=== PATIENT | female | born 1960 | race Caucasian/White ===

== ENCOUNTER 2017-07-24 23:05 | Inpatient (IN) | payer OTHER ==
[~2017-07-24] VITALS: Ht 162.6 cm; Wt 96.6 kg
[2017-07-24 23:06] VITALS: BP 101/63; PULSE 106; RESP 16; TEMP 100.1; O2SAT 96
[2017-07-24] MEDS ORDERED: SODIUM CHLOR 0.9% 1000 ML INJ 1,000 ML IV ONE (23:44)
[2017-07-24] MEDS ORDERED: ONDANSETRON HCL 4 MG/2 ML VIAL IV PUSH ONE (23:45)
--- NOTE | 2017-07-24 23:47 | PD ---
HPI Chief Complaint: Fever Time Seen by Provider: 23:31 Travel History International Travel<30 days: No Contact w/Intl Traveler<30days: No Traveled to known affect area: No History of Present Illness HPI 57-year-old female from [place], here on vacation, status post left ureteral stent removal yesterday in [place], here for evaluation of fever, nausea, vomiting, and left flank discomfort. Patient reports that she had a ureteral stone that was complicated by a perforated left ureter. She had a ureteral stent placed at that time which was around 2 weeks ago, and was removed yesterday in [place]. She has had a fever throughout the day today with nausea and vomiting. Left flank pain is very mild, described as a tearing type pain. She took Tylenol about 2 hours prior to arrival for a temp at home of 102.7F. She denies dysuria, hematuria, or pyuria. [facility] Social History Tobacco Use: No Allergies-Medications (Allergen,Severity, Reaction): Coded Allergies: amoxicillin (Verified Allergy, Severe, Anaphylaxis, 07/24/17) sulfamethoxazole (Verified Allergy, Severe, Hives, 07/24/17) trimethoprim (Verified Allergy, Severe, Hives, 07/24/17) Reported Meds & Prescriptions Reported Meds & Active Scripts Active Reported Zoloft (Sertraline HCl) 50 Mg Tab 50 Mg PO DAILY Diovan (Valsartan) 160 Mg Tab 160 Mg PO BID Metformin (Metformin HCl) 500 Mg Tab 500 Mg PO DAILY With a meal Review of Systems Except as stated in HPI: all other systems reviewed are Neg Physical Exam Narrative GENERAL: Well-developed, well-nourished, comfortable, no apparent distress. SKIN: Focused skin assessment warm/dry. No rash. HEAD: Atraumatic. Normocephalic. EYES: Pupils equal and round. No scleral icterus. No injection or drainage. ENT: Mucous membranes pink and moist. NECK: Trachea midline. No JVD. CARDIOVASCULAR: Tachycardic, rate 105, regular. RESPIRATORY: No accessory muscle use. Clear to auscultation. Breath sounds equal bilaterally. GASTROINTESTINAL: Abdomen soft, non-tender, nondistended. MUSCULOSKELETAL: No obvious deformities. No clubbing. No cyanosis. No edema. Mild left CVA tenderness. No right CVA tenderness. NEUROLOGICAL: Awake and alert. No obvious cranial nerve deficits. Motor grossly within normal limits. Normal speech. PSYCHIATRIC: Appropriate mood and affect; insight and judgment normal. Data Data Last Documented VS Vital Signs Date Time Temp Pulse Resp B/P (MAP) Pulse Ox O2 Delivery O2 Flow Rate FiO2 07/24/17 23:06 100.1 106 16 101/63 (76) 96 Room Air Orders Orders Sepsis Workup Initiated (07/24/17 ) Complete Blood Count With Diff (07/24/17 23:44) Comprehensive Metabolic Panel (07/24/17 23:44) Prothrombin Time / Inr (Pt) (07/24/17 23:44) Act Partial Throm Time (Ptt) (07/24/17 23:44) Lactic Acid Sepsis Protocol (07/24/17 23:44) Urinalysis - C+S If Indicated (07/24/17 23:44) Blood Culture (07/24/17 23:44) Ecg Monitoring (07/24/17 23:44) Iv Access Insert/Monitor (07/24/17 23:44) Oximetry (07/24/17 23:44) Ondansetron Inj (Zofran Inj) (07/24/17 23:45) Sodium Chlor 0.9% 1000 Ml Inj (Ns 1000 M (07/24/17 23:44) Urine Culture (07/24/17 23:55) Ceftriaxone Inj (Rocephin Inj) (07/25/17 00:30) Ibuprofen (Motrin) (07/25/17 00:45) Ct Abd/Pel W Iv Contrast(Rout) (07/25/17 00:46) Iohexol 350 Inj (Omnipaque 350 Inj) (07/25/17 01:20) Sodium Chlor 0.9% 1000 Ml Inj (Ns 1000 M (07/25/17 02:00) Urinary Catheter Insert/Apply (07/25/17 02:08) Phenazopyridine (Pyridium) (07/25/17 02:15) Invasive Rad Dept Consult (07/25/17 ) Admit Order (Ed Use Only) (07/25/17 02:18) Labs Laboratory Tests Test 07/24/17 23:55 White Blood Count 15.2 TH/MM3 Red Blood Count 3.89 MIL/MM3 Hemoglobin 11.4 GM/DL Hematocrit 33.3 % Mean Corpuscular Volume 85.6 FL Mean Corpuscular Hemoglobin 29.3 PG Mean Corpuscular Hemoglobin Concent 34.3 % Red Cell Distribution Width 13.0 % Platelet Count 182 TH/MM3 Mean Platelet Volume 9.2 FL Neutrophils (%) (Auto) 87.3 % Lymphocytes (%) (Auto) 4.6 % Monocytes (%) (Auto) 7.6 % Eosinophils (%) (Auto) 0.1 % Basophils (%) (Auto) 0.4 % Neutrophils # (Auto) 13.3 TH/MM3 Lymphocytes # (Auto) 0.7 TH/MM3 Monocytes # (Auto) 1.2 TH/MM3 Eosinophils # (Auto) 0.0 TH/MM3 Basophils # (Auto) 0.1 TH/MM3 CBC Comment DIFF FINAL Differential Comment Prothrombin Time 11.3 SEC Prothromb Time International Ratio 1.1 RATIO Activated Partial Thromboplast Time 24.9 SEC Urine Color ORANGE Urine Turbidity HAZY Urine pH 6.0 Urine Specific [place] 1.014 Urine Protein TRACE mg/dL Urine Glucose (UA) NEG mg/dL Urine Ketones NEG mg/dL Urine Occult Blood SMALL Urine Nitrite POS Urine Bilirubin NEG Urine Urobilinogen 2.0 MG/DL Urine Leukocyte Esterase LARGE Urine RBC 14 /hpf Urine WBC 124 /hpf Urine Squamous Epithelial Cells 1 /hpf Urine Bacteria OCC /hpf Urine Mucus FEW /lpf Microscopic Urinalysis Comment CATH-CULTURE IND Blood Urea Nitrogen 15 MG/DL Creatinine 1.19 MG/DL Random Glucose 180 MG/DL Total Protein 7.8 GM/DL Albumin 3.6 GM/DL Calcium Level 9.0 MG/DL Alkaline Phosphatase 77 U/L Aspartate Amino Transf (AST/SGOT) 18 U/L Alanine Aminotransferase (ALT/SGPT) 19 U/L Total Bilirubin 0.8 MG/DL Sodium Level 135 MEQ/L Potassium Level 3.3 MEQ/L Chloride Level 100 MEQ/L Carbon Dioxide Level 26.8 MEQ/L Anion Gap 8 MEQ/L Estimat Glomerular Filtration Rate 47 ML/MIN Lactic Acid Level 1.9 mmol/L MDM Medical Decision Making Medical Screen Exam Complete: Yes Emergency Medical Condition: Yes Differential Diagnosis Sepsis, pyelonephritis, perinephric abscess, UTI, colitis, diverticulitis Narrative Course Initial vital signs show heart rate 106, blood pressure 101/63, pulse ox 96% on room air, oral temp of 100.1F. CBC: WBC 15.2, hemoglobin 11.4, hematocrit 33.3, platelets 182, neutrophils 87.3 %. CMP is remarkable for potassium 3.3, creatinine 1.19, GFR 47, random glucose 180 , otherwise essentially unremarkable. Lactic acid is 1.9. UA: Hazy urine, small occult blood, positive nitrites, large leukocyte esterase, 14 RBCs, 124 WBCs, occasional bacteria. The patient was given a dose of IV Rocephin, a liter of normal saline IV, and oral ibuprofen. CT abdomen pelvis: CONCLUSION: 1. Fat-containing ventral hernias. 2. Mild left hydronephrosis and hydroureter with a 3.7 mm calculus in the left proximal ureter. 3. Significant perinephric stranding and periureteral stranding with a 6.1 cm rim-enhancing fluid collection abutting the left psoas muscle. The possibility of a left ureteral injury with organizing fluid collection, possibly abscess versus urinoma collection can have this appearance. The 4. Mild hepatic steatosis. 5. Small hiatal hernia. Case discussed with on-call urologist Dr. Carter who recommends Steel catheter placement and interventional radiology consultation for drainage of this fluid collection. Patient remains tachycardic despite 1 L of normal saline IV. She will be given another liter. Blood pressure at 2:00 AM is 104/62 with a heart rate of 105. Case discussed with communications engineer who will admit the patient to his service. Critical Care Narrative Aggregate critical care time was 35 minutes. Time to perform other separately billable procedures was not included in the critical care time. My time did not include minutes spent treating any other patients simultaneously or on activities that did not directly contribute to the patient's treatment. The services I provided to this patient were to treat and/or prevent clinically significant deterioration that could result in: , permanent disability, worsening clinical condition, septic shock I provided critical care services requiring my management, as noted below: Chart data review, documentation time, medication orders and management, vital sign assessments/reviewing monitor data, ordering and reviewing lab tests, ordering and interpreting/reviewing x-rays and diagnostic studies, care of the patient and discussion of the patient with the admitting physicians. Diagnosis Primary Impression: Sepsis Qualified Codes: A41.9 - Sepsis, unspecified organism Additional Impressions: Pyelonephritis Perinephric fluid collection Ureterolithiasis Hydronephrosis Qualified Codes: N13.30 - Unspecified hydronephrosis Admitting Information Admitting Physician Requests: Admit Marc Segovia MD Jul 24, 2017 23:47
[2017-07-25] VITALS (11 sets, daily range): BP systolic 85–158; BP diastolic 49–82; PULSE 94–122; RESP 15–22; TEMP 98.7–99.4; O2SAT 91–97
[2017-07-25 00:15] LABS: AUTOMATED NEUTROPHIL # 13.3 TH/MM3 (1.8-7.7); BASOPHIL # 0.1 TH/MM3 (0-0.2); BASOPHIL % 0.4 % (0.0-2.0); EOSINOPHIL % 0.1 % (0.0-4.0); HEMATOCRIT 33.3 % (35.0-46.0); HEMO FLAGS DIFF FINAL; LYMPH % 4.6 % (9.0-44.0); LYMPHOCYTE # 0.7 TH/MM3 (1.0-4.8); MEAN CELL VOLUME 85.6 FL (80.0-100.0); MEAN CORPUSCULAR HEMOGLOBIN 29.3 PG (27.0-34.0); MEAN CORPUSCULAR HGB CONC 34.3 % (32.0-36.0); MONO % 7.6 % (0.0-8.0); NEUT % 87.3 % (16.0-70.0); PLATELET COUNT 182 TH/MM3 (150-450); RED BLOOD COUNT 3.89 MIL/MM3 (4.00-5.30); WHITE BLOOD COUNT 15.2 TH/MM3 (4.0-11.0)
[2017-07-25 00:21] LABS: BACTERIA, URINE OCC /hpf; BLOOD, URINE SMALL (NEG); GLUCOSE,URINE NEG (NEG); KETONE, URINE NEG (NEG); MUCUS URINE FEW /lpf (OCC); NITRITE,URINE POS (NEG); SQUAMOUS EPITHELIAL CELL URINE 1 /hpf (0-5)
[2017-07-25 00:22] LABS: COMMENT (UR) CATH-CULTURE IND; CULTURE IF INDICATED CATH CULTURE IND; URINE COLOR ORANGE (YELLW/STRAW)
[2017-07-25] MEDS ORDERED: METF500T PO (00:25)
[2017-07-25] MEDS ORDERED: ZOLO50TA PO (00:25)
[2017-07-25] MEDS ORDERED: DIOV160T6 PO (00:25)
[2017-07-25 00:26] LABS: APTT (PATIENT) 24.9 SEC (24.3-30.1); INTERNATIONAL NORMALIZED RATIO 1.1 RATIO; PROTHROMBIN TIME - PATIENT 11.3 SEC (9.8-11.6)
[2017-07-25] MEDS ORDERED: cefTRIAXone INJ 1,000 MG in SODIUM CHLORIDE 0.9% INJ 100 ML IV ONE (00:30)
[2017-07-25 00:38] LABS: ANION GAP 8 MEQ/L (5-15); AST (GOT) 18 U/L (15-37); BICARBONATE 26.8 MEQ/L (21.0-32.0); BLOOD UREA NITROGEN 15 MG/DL (7-18); CHLORIDE 100 MEQ/L (98-107); GLOMERULAR FILTRATION RATE 47 ML/MIN (>89); POTASSIUM 3.3 MEQ/L (3.5-5.1); SODIUM (NA) 135 MEQ/L (136-145)
[2017-07-25 00:39] LABS: ALT (GPT) 19 U/L (10-53)
[2017-07-25 00:41] LABS: ALKALINE PHOSPHATASE 77 U/L (45-117); TOTAL BILIRUBIN ADULT 0.8 MG/DL (0.2-1.0)
[2017-07-25] MEDS ORDERED: IBUPROFEN 600 MG TAB PO ONE (00:45)
[2017-07-25] MEDS ORDERED: IOHEXOL 350 MG/ML 10 ML VIAL (for RAD DIAG) IVCONTRAST ONE (01:20)
--- NOTE | 2017-07-25 01:38 | RADRPT ---
EXAM DATE/TIME: 07/25/2017 01:15 [place] COMPARISON: No previous studies available for comparison. INDICATIONS : Abdominal pain with fever and vomiting. Patient had renal stent removed yesterday. IV CONTRAST: 96 cc Omnipaque 350 (iohexol) IV ORAL CONTRAST: No oral contrast ingested. RADIATION DOSE: 15.49 CTDIvol (mGy) MEDICAL HISTORY : Renal calculi. SURGICAL HISTORY : Renal stent and removal ENCOUNTER: Initial ACUITY: 1 day PAIN SCALE: 7/10 LOCATION: Left flank TECHNIQUE: Volumetric scanning of the abdomen and pelvis was performed. Using automated exposure control and ad justment of the mA and/or kV according to patient size, radiation dose was kept as low as reasonably achievable to obtain optimal diagnostic quality images. DICOM format image data is available electro nically for review and comparison. FINDINGS: No pleural or pericardial effusions are seen. Small hiatal hernia. Mild hepatic steatosis. Cholecyste ctomy clips are noted. Spleen, pancreas, adrenal glands, right kidney unremarkable. The patient has a history of having a left renal stent removed yesterday. There is moderate left hydronephrosis, a sma ll focus of air in the left upper pole collecting system, perinephric stranding, and hydroureter. The re is periureteral fluid tracking inferiorly. A 3.7 mm calcific density in the left mid ureter is helio ntified. There is a rim-enhancing fluid collection abutting the psoas musculature on the left abuttin g the left ureter. On axial image 42 this measures 6.1 x 3 cm in AP and transverse dimension. There i s an infraumbilical ventral fat-containing hernia, hernia sac measures 7.5 cm in transverse dimension , abdominal wall defect measures 4.9 cm transverse dimension. There is an adjacent hernia sac measuri ng 6.7 cm containing fat. Lung bases are clear. Osseous structures are intact. CONCLUSION: 1. Fat-containing ventral hernias. 2. Mild left hydronephrosis and hydroureter with a 3.7 mm calculus in the left proximal ureter. 3. Significant perinephric stranding and periureteral stranding with a 6.1 cm rim-enhancing fluid col lection abutting the left psoas muscle. The possibility of a left ureteral injury with organizing flu id collection, possibly abscess versus urinoma collection can have this appearance. The 4. Mild hepatic steatosis. 5. Small hiatal hernia. Jakob A. Charles, MD on July 25, 2017 at 1:32 Board Certified Radiologist. This report was verified electronically.
[2017-07-25] MEDS ORDERED: SODIUM CHLOR 0.9% 1000 ML INJ 1,000 ML IV ONE ×6 (02:00→21:45)
[2017-07-25] MEDS ORDERED: PHENAZOPYRIDINE HCL 200 MG TAB PO ONE (02:15)
[2017-07-25] MEDS ORDERED: SODIUM CHLOR 0.9% 1000 ML INJ 100 ML IV ONE (02:28)
[2017-07-25] MEDS ORDERED: RESP: ALBUTEROL 2.5 MG/IPRATROPIUM 0.5 MG NEB (PRN) INH (02:30)
[2017-07-25] MEDS ORDERED: CHLORHEXIDINE GLUCONATE 2 % 1 PACK (2 CLOTHS) TOP PRN (02:30)
[2017-07-25] MEDS ORDERED: GLUCAGON 1 MG/ML VIAL OTHER PRN ×2 (02:30→09:30)
[2017-07-25] MEDS ORDERED: MAGNESIUM HYDROXIDE SUSP 30 ML CUP PO PRN (02:30)
[2017-07-25] MEDS ORDERED: SENNOSIDES 8.6 MG TAB PO PRN (02:30)
[2017-07-25] MEDS ORDERED: BISACODYL 10 MG SUPP RECTAL PRN (02:30)
[2017-07-25] MEDS ORDERED: LACTULOSE SYRUP 20 GM/30 ML CUP PO PRN (02:30)
[2017-07-25] MEDS ORDERED: Vancomycin Consult Pharmacy 1 EA OTHER SCH (02:30)
[2017-07-25] MEDS ORDERED: DEXTROSE 50% IN WATER 50 ML VIAL(D50) IV PUSH PRN ×2 (02:30→09:30)
[2017-07-25] MEDS ORDERED: ONDANSETRON HCL 4 MG/2 ML VIAL IV PUSH PRN (02:30)
[2017-07-25] MEDS ORDERED: ZOLPIDEM TARTRATE 5 MG TAB PO PRN (02:30)
[2017-07-25] MEDS ORDERED: MISCELLANEOUS NURSING INFORMATION XX SCH (02:30)
[2017-07-25] MEDS ORDERED: SODIUM CHLORIDE 0.9% FLUSH 10 ML FLUSH IV FLUSH PRN (02:30)
--- NOTE | 2017-07-25 03:41 | HHI.HP ---
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 Patient reports that she had a ureteral stone that was complicated by a perforated left ureter. She had a ureteral stent placed at that time which was around 2 weeks ago, and was removed yesterday in [place]. She has had a fever throughout the day today with nausea and vomiting. Left flank pain is very mild, described as a tearing type pain. She took Tylenol about 2 hours prior to arrival for a temp at home of 102.7F. She denies dysuria, hematuria, or pyuria. The CAT scan of the abdomen is significant for perinephric stranding and periureteral stranding with a 6.1 cm rim-enhancing fluid highly suspicious of abscess. Review of Systems Constitutional: COMPLAINS OF: Diaphoretic episodes, Fever, Chills, Dizziness, Night Sweats, DENIES: Fatigue, Weight gain, Weight loss, Change in appetite Endocrine: DENIES: Abnorml menstrual pattern, Heat/cold intolerance, Polydipsia , Polyuria, Polyphagia Eyes: DENIES: Blurred vision, Diplopia, Eye inflammation, Eye pain, Vision loss , Photosensitivity, Double Vision Ears, nose, mouth, throat: DENIES: Tinnitus, Hearing loss, Vertigo, Nasal discharge, Oral lesions, Throat pain, Hoarseness, Ear Pain, Running Nose, Epistaxis, Sinus Pain, Toothache, Odynophagia Respiratory: DENIES: Apneas, Cough, Snoring, Wheezing, Hemoptysis, Sputum production, Shortness of breath Cardiovascular: DENIES: Chest pain, Palpitations, Syncope, Dyspnea on Exertion , PND, Lower Extremity Edema, Orthopnea, Claudication Gastrointestinal: COMPLAINS OF: Nausea, DENIES: Abdominal pain, Black stools, Bloody stools, Constipation, Diarrhea, Vomiting, Difficulty Swallowing, Anorexia Genitourinary: COMPLAINS OF: Dysuria, DENIES: Abnormal vaginal bleeding, Dysmenorrhea, Dyspareunia, Sexual dysfunction, Urinary frequency, Urinary incontinence, Urgency, Hematuria, Nocturia, Vaginal discharge Musculoskeletal: COMPLAINS OF: Muscle aches, DENIES: Joint pain, Stiffness, Joint Swelling, Back pain, Neck pain Integumentary: DENIES: Abnormal pigmentation, Pruritus, Rash, Nail changes, Breast masses, Breast skin changes, Nipple discharge Hematologic/lymphatic: DENIES: Bruising, Lymphadenopathy Immunologic/allergic: DENIES: Eczema, Urticaria Neurologic: DENIES: Abnormal gait, Headache, Localized weakness, Paresthesias, Seizures, Speech Problems, Tremor, Poor Balance Psychiatric: DENIES: Anxiety, Confusion, Mood changes, Depression, Hallucinations, Agitation, Suicidal Ideation, Homicidal Ideation, Delusions Past Family Social History Allergies: Coded Allergies: amoxicillin (Verified Allergy, Severe, Anaphylaxis, 07/24/17) sulfamethoxazole (Verified Allergy, Severe, Hives, 07/24/17) trimethoprim (Verified Allergy, Severe, Hives, 07/24/17) Past Medical History Diabetes type 2 Depression Hypertension Chronic back pain Past Surgical History 3 Hysterectomy Appendectomy Right knee meniscus removed Reported Medications Reported Meds & Active Scripts Active Reported Zoloft (Sertraline HCl) 50 Mg Tab 50 Mg PO DAILY Diovan (Valsartan) 160 Mg Tab 160 Mg PO BID Metformin (Metformin HCl) 500 Mg Tab 500 Mg PO DAILY With a meal Active Ordered Medications Current Medications Medications (Trade) Dose Ordered Sig/[place] Route PRN Reason Start Time Stop Time Status Last Admin Dose Admin Sertraline HCl (Zoloft) 50 mg DAILY PO 07/25/17 09:00 Dextrose (D50w (Vial) Inj) 50 ml UNSCH PRN IV PUSH HYPOGLYCEMIA-SEE COMMENTS 07/25/17 02:30 Glucagon (Glucagon Inj) 1 mg UNSCH PRN OTHER HYPOGLYCEMIA-SEE COMMENTS 07/25/17 02:30 Insulin Human Regular (NovoLIN R SUPPLEMENTAL SCALE) 1 ACHS SLIDING SCALE SQ 07/25/17 08:00 Sodium Chloride 1,000 ml @ 124 mls/hr Q8H4M IV 07/25/17 02:28 Sodium Chloride (NS Flush) 2 ml UNSCH PRN IV FLUSH FLUSH AFTER USING IV ACCESS 07/25/17 02:30 Sodium Chloride (NS Flush) 2 ml BID IV FLUSH 07/25/17 09:00 Acetaminophen (Tylenol) 650 mg Q6H PRN PO PAIN 1-10 AND/OR FEVER >101F 07/25/17 02:30 Ondansetron HCl (Zofran Inj) 4 mg Q6H PRN IV PUSH NAUSEA OR VOMITING 07/25/17 02:30 Zolpidem Tartrate (Ambien) 5 mg HS PRN PO INSOMNIA 07/25/17 02:30 Albuterol/ Ipratropium (Duoneb Neb) 1 ampule Q2HR NEB PRN INH WHEEZING 07/25/17 02:30 Miscellaneous Information 1 [id number] XX 07/25/17 02:30 Chlorhexidine Gluconate (Chlorhexidine 2% Cloth) 3 pack Taper DAILY@04 TOP 07/25/17 04:00 07/21/18 03:59 Chlorhexidine Gluconate (Chlorhexidine 2% Cloth) 3 pack UNSCH PRN TOP HYGIENIC CARE 07/25/17 02:30 Senna/Docusate Sodium (Kati-Colace) 1 tab BID PO 07/25/17 09:00 Magnesium Hydroxide (Milk Of Magnesia Liq) 30 ml Q12H PRN PO Mild constipation 07/25/17 02:30 Sennosides (Senokot) 17.2 mg Q12H PRN PO Moderate constipation 07/25/17 02:30 Bisacodyl (Dulcolax Supp) 10 mg DAILY PRN RECTAL SEVERE CONSITIPATION/IF NPO 07/25/17 02:30 Lactulose (Lactulose Liq) 30 ml DAILY PRN PO SEVERE CONSITIPATION/ IF PO 07/25/17 02:30 Cefepime HCl 2000 mg/Sodium Chloride 100 ml @ 100 mls/hr Q12H IV 07/25/17 03:00 Vancomycin HCl 1400 mg/Sodium Chloride 514 ml @ 250 mls/hr DAILY@0400 IV 07/25/17 04:00 07/25/17 07:20 Pharmacy Profile Note 0 ml @ 0 mls/hr UNSCH OTHER 07/25/17 02:30 Family History No family history significant of malignancy Social History Denies alcohol, tobacco, or illicit drug abuse Physical Exam Vital Signs Vital Signs Date Time Temp Pulse Resp B/P (MAP) Pulse Ox O2 Delivery O2 Flow Rate FiO2 07/25/17 03:00 99.2 07/24/17 23:06 100.1 106 16 101/63 (76) 96 Room Air Physical Exam GENERAL: Well-nourished, well-developed patient. SKIN: Warm and dry. HEAD: Normocephalic. EYES: No scleral icterus. No injection or drainage. NECK: Supple, trachea midline. No JVD or lymphadenopathy. CARDIOVASCULAR: Regular rate and rhythm without murmurs, gallops, or rubs. RESPIRATORY: Breath sounds equal bilaterally. No accessory muscle use. GASTROINTESTINAL: Abdomen soft, non-tender, nondistended. MUSCULOSKELETAL: No cyanosis, or edema. BACK: Nontender without obvious deformity. NEURO EXAM: Mental Status: The patient is alert and oriented to person, place, and time with normal speech. Cranial Nerves: Visual acuity intact bilaterally. Visual swartz normal in all quadrants. Pupils are round, reactive to light. Extraocular movements are intact without ptosis. Hearing is normal bilaterally. Voice is normal. Tongue protrudes midline and moves symmetrically. Reflexes: Biceps, patellar, and Achilles are 2/4 bilaterally. No clonus. Laboratory Laboratory Tests Test 07/24/17 23:55 White Blood Count 15.2 Red Blood Count 3.89 Hemoglobin 11.4 Hematocrit 33.3 Mean Corpuscular Volume 85.6 Mean Corpuscular Hemoglobin 29.3 Mean Corpuscular Hemoglobin Concent 34.3 Red Cell Distribution Width 13.0 Platelet Count 182 Mean Platelet Volume 9.2 Neutrophils (%) (Auto) 87.3 Lymphocytes (%) (Auto) 4.6 Monocytes (%) (Auto) 7.6 Eosinophils (%) (Auto) 0.1 Basophils (%) (Auto) 0.4 Neutrophils # (Auto) 13.3 Lymphocytes # (Auto) 0.7 Monocytes # (Auto) 1.2 Eosinophils # (Auto) 0.0 Basophils # (Auto) 0.1 CBC Comment DIFF FINAL Differential Comment Prothrombin Time 11.3 Prothromb Time International Ratio 1.1 Activated Partial Thromboplast Time 24.9 Urine Color ORANGE Urine Turbidity HAZY Urine pH 6.0 Urine Specific [place] 1.014 Urine Protein TRACE Urine Glucose (UA) NEG Urine Ketones NEG Urine Occult Blood SMALL Urine Nitrite POS Urine Bilirubin NEG Urine Urobilinogen 2.0 Urine Leukocyte Esterase LARGE Urine RBC 14 Urine WBC 124 Urine Squamous Epithelial Cells 1 Urine Bacteria OCC Urine Mucus FEW Microscopic Urinalysis Comment CATH-CULTURE IND Blood Urea Nitrogen 15 Creatinine 1.19 Random Glucose 180 Total Protein 7.8 Albumin 3.6 Calcium Level 9.0 Alkaline Phosphatase 77 Aspartate Amino Transf (AST/SGOT) 18 Alanine Aminotransferase (ALT/SGPT) 19 Total Bilirubin 0.8 Sodium Level 135 Potassium Level 3.3 Chloride Level 100 Carbon Dioxide Level 26.8 Anion Gap 8 Estimat Glomerular Filtration Rate 47 Lactic Acid Level 1.9 Date/Time Source Procedure Growth Status 07/24/17 23:50 Blood Peripheral Aerobic Blood Culture Pending Received 07/24/17 23:50 Blood Peripheral Anaerobic Blood Culture Pending Received 07/24/17 23:55 Urine Catheterized Urine Urine Culture Pending Received Result Diagram: 07/24/17 2355 07/24/17 2355 Imaging Last 24 hours Impressions Abdomen/Pelvis CT 07/25/17 0046 Signed Impressions: Service Date/Time: Thursday, July 25, 2017 01:15 - CONCLUSION: 1. Fat-containing ventral hernias. 2. Mild left hydronephrosis and hydroureter with a 3.7 mm calculus in the left proximal ureter. 3. Significant perinephric stranding and periureteral stranding with a 6.1 cm rim-enhancing fluid collection abutting the left psoas muscle. The possibility of a left ureteral injury with organizing fluid collection, possibly abscess versus urinoma collection can have this appearance. The 4. Mild hepatic steatosis. 5. Small hiatal hernia. Jakob Soto MD Septic Shock Reassessment Septic shock perfusion: reassessment completed Caprini VTE Risk Assessment Caprini VTE Risk Assessment: Mod/High Risk (score >= 2) Caprini Risk Assessment Model Point Value = 1 Point Value = 2 Point Value = 3 Point Value = 5 Age 41-60 Minor surgery BMI > 25 kg/m2 Swollen legs Varicose veins or History of unexplained or recurrent spontaneous Oral contraceptives or hormone replacement Sepsis (< 1 month) Serious lung disease, including pneumonia (< 1 month) Abnormal pulmonary function Acute myocardial infarction Congestive heart failure (< 1 month) History of inflammatory bowel disease Medical patient at bed rest Age 61-74 Arthroscopic surgery Major open surgery (> 45 min) Laparoscopic surgery (> 45 min) Malignancy Confined to bed (> 72 hours) Immobilizing plaster cast Central venous access Age >= 75 History of VTE Family history of VTE Factor V Leiden Prothrombin [id number] Lupus anticoagulant Anticardiolipin antibodies Elevated serum homocysteine Heparin-induced thrombocytopenia Other congenital or acquired thrombophilia Stroke (< 1 month) Elective arthroplasty Hip, pelvis, or leg fracture Acute spinal cord injury (< 1 month) Prophylaxis Regimen Total Risk Factor Score Risk Level Prophylaxis Regimen 0-1 Low Early ambulation 2 Moderate Order ONE of the following: *Sequential Compression Device (SCD) *Heparin 5000 units SQ BID 3-4 Higher Order ONE of the following medications: *Heparin 5000 units SQ TID *Enoxaparin/Lovenox 40 mg SQ daily (WT < 150 kg, CrCl > 30 mL/min) *Enoxaparin/Lovenox 30 mg SQ daily (WT < 150 kg, CrCl > 10-29 mL/min) *Enoxaparin/Lovenox 30 mg SQ BID (WT < 150 kg, CrCl > 30 mL/min) AND/OR *Sequential Compression Device (SCD) 5 or more Highest Order ONE of the following medications: *Heparin 5000 units SQ TID (Preferred with Epidurals) *Enoxaparin/Lovenox 40 mg SQ daily (WT < 150 kg, CrCl > 30 mL/min) *Enoxaparin/Lovenox 30 mg SQ daily (WT < 150 kg, CrCl > 10-29 mL/min) *Enoxaparin/Lovenox 30 mg SQ BID (WT < 150 kg, CrCl > 30 mL/min) AND *Sequential Compression Device (SCD) Assessment and Plan Assessment and Plan Perinephritic abscess - Broad-spectrum antibiotic - IR consult for drain - Both cultures and urine cultures - De-escalate antibiotics per results and sensitivity - Aggressive IV fluid hydration - Steel catheter per urology consult Hypertension - Hold home dose of Diovan in the picture of possible early sepsis - Resume when indicated Acute kidney injury - Recent history of obstructive calculus - IV fluid hydration - Strict I's and O's - Electrolytes replacement per ICU protocol Depressions - Continue Zoloft Diabetes mellitus type 2 - Hold metformin while in the ICU - Insulin sliding scale while nothing by mouth DVT GI prophylaxis - Teds SCDs - Hold pharmacological DVT prophylaxis for upcoming possible procedures IR drainage - GI prophylaxis not indicated Critical Care: The total critical care time was 35 minutes. Time to perform other separately billable procedures was not included in the critical care time. Ferny Cote MD Jul 25, 2017 03:41
[2017-07-25] MEDS: CHLORHEXIDINE GLUCONATE 2 % 1 PACK (2 CLOTHS) TOP SCH (04:00)
[2017-07-25] MEDS ORDERED: VANCOMYCIN INJ 1,400 MG in SODIUM CHLORID 0.9% 500 ML INJ 500 ML IV SCH (04:00)
[2017-07-25] MEDS: CEFEPIME INJ 2,000 MG in SODIUM CHLORIDE 0.9% INJ 100 ML IV SCH ×2 (04:14→15:21)
[2017-07-25] MEDS: ACETAMINOPHEN 325 MG TAB PO PRN ×3 (05:41→22:10)
[2017-07-25] MEDS: INSULIN NovoLIN REGULAR SUPPLEMENTAL SCALE SQ SCH ×4 (08:00→21:00)
[2017-07-25] MEDS: SODIUM CHLORIDE 0.9% FLUSH 10 ML FLUSH IV FLUSH SCH ×2 (09:00→21:00)
[2017-07-25] MEDS: DOCUSATE SODIUM 50 MG/SENNA 8.6 MG TAB PO SCH ×2 (09:00→21:00)
[2017-07-25] MEDS ORDERED: MAGNESIUM OXIDE 400 MG TAB PO PRN (09:30)
[2017-07-25] MEDS ORDERED: MAGNESIUM SULFATE INJ 4 GM in SODIUM CHLORIDE 0.9% INJ 92 ML IV PRN (09:30)
[2017-07-25] MEDS ORDERED: POTASSIUM CHLORIDE 25 MEQ EFFERVESCENT TAB PO PRN (09:30)
[2017-07-25] MEDS ORDERED: INSULIN NovoLIN REGULAR SUPPLEMENTAL SCALE SQ SCH (09:30)
[2017-07-25] MEDS ORDERED: SODIUM PHOSPHATE INJ 30 MMOL in SODIUM CHLOR 0.9% 250 ML INJ 240 ML IV PRN (09:30)
[2017-07-25] MEDS ORDERED: POTASSIUM PHOSPHATE MONOBASIC 500 MG TAB PO/TUBE PRN (09:30)
[2017-07-25] MEDS ORDERED: MAGNESIUM SULFATE INJ 2 GM in SODIUM CHLORIDE 0.9% INJ 96 ML IV PRN (09:30)
[2017-07-25] MEDS ORDERED: POTASSIUM CHLOR 40 MEQ PREMIX 100 ML IV PRN ×2 (09:30)
[2017-07-25] MEDS ORDERED: POTASSIUM PHOSPHATE MONOBASIC 500 MG TAB PO PRN (09:30)
[2017-07-25] MEDS ORDERED: POTASSIUM CHLOR 20 MEQ PREMIX 100 ML IV PRN ×2 (09:30)
[2017-07-25] MEDS: SERTRALINE HCL 50 MG TAB PO SCH (10:51)
[2017-07-25] MEDS: SODIUM CHLOR 0.9% 1000 ML INJ 1,000 ML IV SCH (10:53)
[2017-07-25 11:12] LABS: AUTOMATED NEUTROPHIL # 7.9 TH/MM3 (1.8-7.7); BASOPHIL % 0.2 % (0.0-2.0); HEMATOCRIT 29.1 % (35.0-46.0); HEMO FLAGS DIFF FINAL; LYMPH % 4.2 % (9.0-44.0); LYMPHOCYTE # 0.4 TH/MM3 (1.0-4.8); MEAN CORPUSCULAR HEMOGLOBIN 29.4 PG (27.0-34.0); MEAN CORPUSCULAR HGB CONC 33.8 % (32.0-36.0); MONO % 3.2 % (0.0-8.0); NEUT % 92.4 % (16.0-70.0); PLATELET COUNT 127 TH/MM3 (150-450); RED BLOOD COUNT 3.34 MIL/MM3 (4.00-5.30); RED CELL DISTRIBUTION WIDTH 13.2 % (11.6-17.2); WHITE BLOOD COUNT 8.5 TH/MM3 (4.0-11.0)
[2017-07-25 11:35] LABS: BICARBONATE 26.5 MEQ/L (21.0-32.0); MAGNESIUM 0.9 MG/DL (1.5-2.5); POTASSIUM 3.1 MEQ/L (3.5-5.1)
[2017-07-25] MEDS: FAMOTIDINE 20 MG/2 ML VIAL IV PUSH SCH ×2 (12:00→23:21)
[2017-07-25] MEDS ORDERED: MAGNESIUM CITRATE SOLN 300 ML BTL PO ONE ×2 (12:00→18:00)
--- NOTE | 2017-07-25 12:04 | PD.ID.CON ---
History of Present Illness Service ID Consult Requested By Reason for Consult Evaluation and Mment of Severe Sepsis, Pyelonephritis with left side perinephric abscess. Primary Care Physician Unknown Diagnoses: History of Present Illness is a 57 y/o CF with PMHx of recurrent UTI, pyelonephritis, ureteral stones, s.p cystoscopy and ureteral stent placement 3 weeks back in [place]. Patient reports the ureter was perforated and a stent placed. 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 She had her stent removed 5-6 days prior to admission. She reports she went back to work and was dragging herself. She has never had to do this but while walking from her work to her car she had to pause and wait due to weakness. She felt ok so the family decided to come to [place], [place] for a vacation. Enroute on her road trip her she felt chills, nausea and vomiting. Left flank pain radiating to knee area was felt and described as tearing type. She reports a temp of 102 F prior to admission. She denies dysuria, hematuria, or pyuria. The CAT scan of the abdomen is significant for perinephric stranding and periureteral stranding with a 6.1 cm rim-enhancing fluid highly suspicious of abscess. She denies any h/o MDRO, ESBLs. She reports allergy to penicillin with closing of her airway but has tolerated Keflex well. She reports allergy to bactrim. At the time of my evaluation, patient was in [facility]: awake, alert following commands. She had a ponce in place with blood tinged urine. She was not on pressors but her BP was 88/54 (patient is normally hypertensive on meds). Yeny Martinez who will follow the BP and fluid need assessment. No rash, no diarrhea. ID consulted for evaluation and Mment of severe sepsis, Left pyelonephritis and perinephric abscess. IR consulted for CT guided drainage. Review of Systems Constitutional: COMPLAINS OF: Chills, Change in appetite, DENIES: Diaphoretic episodes, Fatigue, Fever, Weight gain, Weight loss, Dizziness, Night Sweats Endocrine: DENIES: Abnorml menstrual pattern, Heat/cold intolerance, Polydipsia , Polyuria, Polyphagia Eyes: DENIES: Blurred vision, Diplopia, Eye inflammation, Eye pain, Vision loss , Photosensitivity, Double Vision Ears, nose, mouth, throat: DENIES: Tinnitus, Hearing loss, Vertigo, Nasal discharge, Oral lesions, Throat pain, Hoarseness, Ear Pain, Running Nose, Epistaxis, Sinus Pain, Toothache, Odynophagia Respiratory: DENIES: Apneas, Cough, Snoring, Wheezing, Hemoptysis, Sputum production, Shortness of breath Cardiovascular: DENIES: Chest pain, Palpitations, Syncope, Dyspnea on Exertion , PND, Lower Extremity Edema, Orthopnea, Claudication Gastrointestinal: DENIES: Abdominal pain, Black stools, Bloody stools, Constipation, Diarrhea, Nausea, Vomiting, Difficulty Swallowing, Anorexia Genitourinary: COMPLAINS OF: Hematuria, DENIES: Abnormal vaginal bleeding, Dysmenorrhea, Dyspareunia, Sexual dysfunction, Urinary frequency, Urinary incontinence, Urgency, Dysuria, Nocturia, Vaginal discharge Musculoskeletal: COMPLAINS OF: Back pain, DENIES: Joint pain, Muscle aches, Stiffness, Joint Swelling, Neck pain Integumentary: DENIES: Abnormal pigmentation, Pruritus, Rash, Nail changes, Breast masses, Breast skin changes, Nipple discharge Hematologic/lymphatic: DENIES: Bruising, Lymphadenopathy Immunologic/allergic: DENIES: Eczema, Urticaria Neurologic: DENIES: Abnormal gait, Headache, Localized weakness, Paresthesias, Seizures, Speech Problems, Tremor, Poor Balance Psychiatric: DENIES: Anxiety, Confusion, Mood changes, Depression, Hallucinations, Agitation, Suicidal Ideation, Homicidal Ideation, Delusions Except as stated in HPI: all other systems reviewed are Neg Past Family Social History Allergies: Coded Allergies: amoxicillin (Verified Allergy, Severe, Anaphylaxis, 07/24/17) sulfamethoxazole (Verified Allergy, Severe, Hives, 07/24/17) trimethoprim (Verified Allergy, Severe, Hives, 07/24/17) Past Medical History recurrent UTIs and pyelonephritis Diabetes type 2 Depression Hypertension Chronic back pain Past Surgical History 3 Hysterectomy Appendectomy Right knee meniscus removed Ureteral stone placement with rupture. s.p cystoscopy and stent placement. Reported Medications Reported Meds & Active Scripts Active Reported Zoloft (Sertraline HCl) 50 Mg Tab 50 Mg PO DAILY Diovan (Valsartan) 160 Mg Tab 160 Mg PO BID Metformin (Metformin HCl) 500 Mg Tab 500 Mg PO DAILY With a meal Active Ordered Medications Current Medications Medications (Trade) Dose Ordered Sig/Wayne Route Start Time Stop Time Status Last Admin (Zoloft) 50 mg DAILY PO 07/25/17 09:00 07/25/17 10:51 (D50w (Vial) Inj) 50 ml UNSCH PRN IV PUSH 07/25/17 02:30 (Glucagon Inj) 1 mg UNSCH PRN OTHER 07/25/17 02:30 (NovoLIN R SUPPLEMENTAL SCALE) 1 ACHS SLIDING SCALE SQ 07/25/17 08:00 Sodium Chloride 1,000 ml @ 75 mls/hr [id number] IV 07/25/17 02:28 07/25/17 10:53 (NS Flush) 2 ml UNSCH PRN IV FLUSH 07/25/17 02:30 (NS Flush) 2 ml BID IV FLUSH 07/25/17 09:00 (Tylenol) 650 mg Q6H PRN PO 07/25/17 02:30 07/25/17 05:41 (Zofran Inj) 4 mg Q6H PRN IV PUSH 07/25/17 02:30 (Ambien) 5 mg HS PRN PO 07/25/17 02:30 (Duoneb Neb) 1 ampule Q2HR NEB PRN INH 07/25/17 02:30 Miscellaneous Information 1 Q361D XX 07/25/17 02:30 (Chlorhexidine 2% Cloth) 3 pack Taper DAILY@04 TOP 07/25/17 04:00 07/21/18 03:59 07/25/17 04:00 (Chlorhexidine 2% Cloth) 3 pack UNSCH PRN TOP 07/25/17 02:30 (Kati-Colace) 1 tab BID PO 07/25/17 09:00 (Milk Of Magnesia Liq) 30 ml Q12H PRN PO 07/25/17 02:30 (Senokot) 17.2 mg Q12H PRN PO 07/25/17 02:30 (Dulcolax Supp) 10 mg DAILY PRN RECTAL 07/25/17 02:30 (Lactulose Liq) 30 ml DAILY PRN PO 07/25/17 02:30 Cefepime HCl 2000 mg/Sodium Chloride 100 ml @ 100 mls/hr Q12H IV 07/25/17 03:00 07/25/17 04:14 Pharmacy Profile Note 0 ml @ 0 mls/hr UNSCH OTHER 07/25/17 02:30 (D50w (Vial) Inj) 50 ml UNSCH PRN IV PUSH 07/25/17 09:30 (Glucagon Inj) 1 mg UNSCH PRN OTHER 07/25/17 09:30 (NovoLIN R SUPPLEMENTAL SCALE) 1 Q6H SQ 07/25/17 09:30 Potassium Chloride 100 ml @ 50 mls/hr Q2H PRN IV 07/25/17 09:30 Potassium Chloride 100 ml @ 50 mls/hr Q2H PRN IV 07/25/17 09:30 (K-Lyte Cl Eff) 50 meq UNSCH PRN PO 07/25/17 09:30 Potassium Chloride 100 ml @ 25 mls/hr UNSCH PRN IV 07/25/17 09:30 Potassium Chloride 100 ml @ 50 mls/hr Q2H PRN IV 07/25/17 09:30 Magnesium Sulfate 4 gm/Sodium Chloride 100 ml @ 50 mls/hr UNSCH PRN IV 07/25/17 09:30 (Mag-Ox) 800 mg UNSCH PRN PO 07/25/17 09:30 Magnesium Sulfate 2 gm/Sodium Chloride 100 ml @ 50 mls/hr UNSCH PRN IV 07/25/17 09:30 (K-Phos) 2,000 mg Q4H PRN PO 07/25/17 09:30 Sodium Phosphate 30 mmol/Sodium Chloride 250 ml @ 42 mls/hr UNSCH PRN IV 07/25/17 09:30 (K-Phos) 2,000 mg UNSCH PRN PO/TUBE 07/25/17 09:30 Potassium Phosphate 30 mmol/ Sodium Chloride 260 ml @ 42 mls/hr UNSCH PRN IV 07/25/17 09:30 Sodium Chloride 1,000 ml @ 999 mls/hr BOLUS ONCE IV 07/25/17 11:15 07/25/17 12:15 (Pepcid Inj) 10 mg Q12H IV PUSH 07/25/17 12:00 Family History reviewed and NC to current ID problems. Social History Lives in [place]. Is an ICU nurse for 34 yrs. No alcohol, no smoking, no illicit drug use. Physical Exam Vital Signs Vital Signs Date Time Temp Pulse Resp B/P (MAP) Pulse Ox O2 Delivery O2 Flow Rate FiO2 07/25/17 07:00 122 19 111/59 (76) 91 07/25/17 06:41 19 07/25/17 06:00 116 07/25/17 04:00 109 07/25/17 03:52 99.4 109 20 158/82 (107) 95 07/25/17 03:00 99.2 07/24/17 23:06 100.1 106 16 101/63 (76) 96 Room Air Physical Exam GENERAL: This is a well-nourished, well-developed patient, in no apparent distress. SKIN: No rashes, ecchymoses or lesions. Cool and dry. HEAD: Atraumatic. Normocephalic. No temporal or scalp tenderness. EYES: Pupils equal round and reactive. Extraocular motions intact. No scleral icterus. No injection or drainage. ENT: Nose without bleeding, purulent drainage or septal hematoma. Throat without erythema, tonsillar hypertrophy or exudate. Uvula midline. Airway patent. NECK: Trachea midline. Supple, nontender, no meningeal signs. CARDIOVASCULAR: Regular rate and rhythm without murmurs, gallops, or rubs. RESPIRATORY: Clear to auscultation. Breath sounds equal bilaterally. No wheezes , rales, or rhonchi. GASTROINTESTINAL: Abdomen soft, non-tender, nondistended. MUSCULOSKELETAL: Extremities without clubbing, cyanosis, or edema. No joint tenderness, effusion, or edema noted. No calf tenderness. Negative Homans sign bilaterally. NEUROLOGICAL: Awake and alert. Cranial nerves II through XII intact. Motor and sensory grossly within normal limits. Five out of 5 muscle strength in all muscle groups. Normal speech. Psych cooperative IV line sites with no e.o infection Ponce with blood tinged urine. Laboratory Laboratory Tests Test 07/24/17 23:55 07/25/17 03:48 07/25/17 07:55 07/25/17 10:39 White Blood Count 15.2 8.5 Red Blood Count 3.89 3.34 Hemoglobin 11.4 9.8 Hematocrit 33.3 29.1 Mean Corpuscular Volume 85.6 87.0 Mean Corpuscular Hemoglobin 29.3 29.4 Mean Corpuscular Hemoglobin Concent 34.3 33.8 Red Cell Distribution Width 13.0 13.2 Platelet Count 182 127 Mean Platelet Volume 9.2 9.1 Neutrophils (%) (Auto) 87.3 92.4 Lymphocytes (%) (Auto) 4.6 4.2 Monocytes (%) (Auto) 7.6 3.2 Eosinophils (%) (Auto) 0.1 0.0 Basophils (%) (Auto) 0.4 0.2 Neutrophils # (Auto) 13.3 7.9 Lymphocytes # (Auto) 0.7 0.4 Monocytes # (Auto) 1.2 0.3 Eosinophils # (Auto) 0.0 0.0 Basophils # (Auto) 0.1 0.0 CBC Comment DIFF FINAL DIFF FINAL Differential Comment Prothrombin Time 11.3 Prothromb Time International Ratio 1.1 Activated Partial Thromboplast Time 24.9 Urine Color ORANGE Urine Turbidity HAZY Urine pH 6.0 Urine Specific [place] 1.014 Urine Protein TRACE Urine Glucose (UA) NEG Urine Ketones NEG Urine Occult Blood SMALL Urine Nitrite POS Urine Bilirubin NEG Urine Urobilinogen 2.0 Urine Leukocyte Esterase LARGE Urine RBC 14 Urine WBC 124 Urine Squamous Epithelial Cells 1 Urine Bacteria OCC Urine Mucus FEW Microscopic Urinalysis Comment CATH-CULTURE IND Blood Urea Nitrogen 15 13 Creatinine 1.19 1.01 Random Glucose 180 148 Total Protein 7.8 Albumin 3.6 Calcium Level 9.0 7.8 Alkaline Phosphatase 77 Aspartate Amino Transf (AST/SGOT) 18 Alanine Aminotransferase (ALT/SGPT) 19 Total Bilirubin 0.8 Sodium Level 135 143 Potassium Level 3.3 3.1 Chloride Level 100 109 Carbon Dioxide Level 26.8 26.5 Anion Gap 8 8 Estimat Glomerular Filtration Rate 47 57 Lactic Acid Level 1.9 1.8 Nasal Screen MRSA (PCR) MRSA NOT DETECTED Phosphorus Level 1.9 Magnesium Level 0.9 Date/Time Source Procedure Growth Status 07/25/17 07:55 Blood Peripheral Aerobic Blood Culture Pending Received 07/25/17 07:55 Blood Peripheral Anaerobic Blood Culture Pending Received 07/24/17 23:55 Urine Catheterized Urine Urine Culture Pending Received Result Diagram: 07/25/17 1039 07/25/17 1039 Imaging Last Impressions Abdomen/Pelvis CT 07/25/17 0046 Signed Impressions: Service Date/Time: Tuesday, July 25, 2017 01:15 - CONCLUSION: 1. Fat-containing ventral hernias. 2. Mild left hydronephrosis and hydroureter with a 3.7 mm calculus in the left proximal ureter. 3. Significant perinephric stranding and periureteral stranding with a 6.1 cm rim-enhancing fluid collection abutting the left psoas muscle. The possibility of a left ureteral injury with organizing fluid collection, possibly abscess versus urinoma collection can have this appearance. The 4. Mild hepatic steatosis. 5. Small hiatal hernia. Jakob Soto MD Assessment and Plan Assessment and Plan Severe Sepsis Hypotension s/p 3 bolus IVF. Lactic acid normalized. Left pyelonephritis with perinephric abscess Possible bacteremia. Possible psoas muscle abscess. h/o ureteral stent placement after a perforation of ureter on left side. 3 wks back at [facility]. acute renal failure: sepsis, prerenal. acute thrombocytopenia: sepsis, meds. Hematuria: likely ureteral perforation related. Recs Continue Cefepime IV (appears to be clinically responding to it) If any change in clinical condition consider escalating to Meropenem as pt is at high risk for ESBLs due to multiple antibiotics in recent past. Follow cultures follow clinically. Plan for IR guided drainage of abscess. briefly d.w . Reviewed imaging with family. d/w hot plate press operator: reassess BP and need for fluids and inform the Wheel Truer. d.w pt and family in room. Dena Loaiza MD Jul 25, 2017 12:04
[2017-07-25] MEDS ORDERED: LIDOCAINE 1%/EPINEPHrine 1:100,000 SOLN 20 ML VIAL ONE (12:42)
--- NOTE | 2017-07-25 13:06 | MB ---
cc: ALFRED SALCIDO DATE OF CONSULTATION: 07/25/2017. HISTORY OF PRESENT ILLNESS: Ms. Palafox is a pleasant 57-year-old female who underwent treatment for a left ureteral stone on 07/02/2017. At the time, she underwent cystoscopy with ureteroscopy and laser lithotripsy for a stone. Apparently, there was some sort of ureteral disruption and a left double-J stent was left in place along with a Steel catheter. The Steel catheter remained in for a week and the indwelling left ureteral stent was there for three weeks. The stent was removed approximately four to five days ago and she decided to travel from [place] to [facility] over the last 24 hours. She started to develop fever with left flank pain and weakness and noted some nausea and vomiting. She presented to the emergency room and a CT scan was performed demonstrating evidence of an infected urinoma along the proximal ureter on the left side. Mild hydronephrosis is noted and there is a 4 cm calcification noted in the proximal ureter. She was currently admitted for sepsis and she was tachycardic and [place] [facility] [place] PAST MEDICAL HISTORY: Her past medical history is notable for: 1. Nephrolithiasis. 2. Urinary tract infections. 3. Pyelonephritis. 4. Diabetes. 5. Depression. 6. Hypertension. 7. Chronic back pain. PAST SURGICAL HISTORY: 1. section. 2. Hysterectomy. 3. Appendectomy. 4. Right knee surgery. 5. Ureteral stent. 6. Cystoscopy. 7. Ureteroscopy. MEDICATIONS: Please refer to the chart. ALLERGIES: AMOXICILLIN. SULFAMETHOXAZOLE. TRIMETHOPRIM. FAMILY HISTORY: Denies any history of renal cancer. 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 REVIEW OF SYSTEMS: She notes flank pain. Denies chest pain. Denies shortness of breath. Notes chills. Decreased appetite. Denies blurry vision. Denies eye pain. Denies tinnitus, hearing loss, vertigo, denies shortness of breath, wheezing. Denies chest pain, palpitations, syncope, denies abdominal pain but notes left-sided flank pain. Some nausea and vomiting is also noted. She denies joint pain or muscle aches. Denies bruising. Denies lymphadenopathy. Denies eczema. Denies abnormal gait. Denies anxiety or confusion. PHYSICAL EXAMINATION: VITAL SIGNS: Presently temperature is 99.4, heart rate 122, respiratory rate 19, blood pressure 111/59. GENERAL: She is a well-developed, well-nourished 57-year-old female in no acute distress. HEAD, EYES, EARS, NOSE, THROAT: Normocephalic and atraumatic. Pupils equal, round and reactive to light and accommodation. Extraocular muscles intact. NECK: The neck is supple. HEART: Regular rate and rhythm LUNGS: Clear. ABDOMEN: Abdomen soft and nontender. There is a little left-sided tenderness noted. There is left costovertebral angle tenderness noted. EXTREMITIES: No cyanosis, clubbing or edema. NEUROLOGICAL EXAMINATION: She is awake and alert. Cranial nerves II through XII are intact. PSYCHIATRIC: Generalized mood. GENITOURINARY: Steel catheter is in place with mildly blood-tinged urine. LABORATORY DATA: White count presently 8.5, hemoglobin 9.8, hematocrit 29.1, platelet count of 127,000. Sodium 143, potassium 3.1, chloride 109, carbon dioxide 26.5, BUN 13, creatinine 1.0, glucose of 148. Urinalysis with large leukocyte esterase, 14 red cells and 124 white cells. Urine culture is currently pending. IMAGING STUDIES: Imaging studies demonstrate a mild left hydronephrosis and hydroureter with a 4 mm calculus left proximal ureter, significant perinephric stranding and periureteral stranding with a 6.1 rim-enhanced collection abutting the left psoas muscle consistent with an infected urinoma. Small hiatal hernia. ASSESSMENT: This is a 57-year-old female with history of a ureteral calculus status post ureteroscopy with recent removal of a left double-J stent now presents with fever, signs of sepsis, and an infected urinoma. RECOMMENDATIONS: 1. Recommend CT-guided drainage of the infected urinoma. 2. Will attempt to place a stent in the operating room in the morning after the IVP is performed today. 3. If the IVP does demonstrate leakage, the patient would benefit from a stent. 4. Continue IV antibiotics. 5. Continue Steel catheter drainage. Thank you for the consult and for allowing me to participate in the care of this patient. Alfred FARRELL/YADIRA /12:32 PM /12:40 PM
[2017-07-25] MEDS ORDERED: MIDAZOLAM HCL 2 MG/2 ML VIAL ONE (13:12)
--- NOTE | 2017-07-25 13:59 | PD.RAD ---
Post CT Procedure Prog Note Pre Procedure Diagnosis: (1) Perinephric fluid collection Post Procedure Diagnosis: (1) Perinephric fluid collection Procedure Date: Jul 25, 2017 Supervising Radiologist: Andres Glover Plan of Activity Patient to Unit: Nursing Unit Patient Condition: Good See PACS Report for procedural detail/treatment Drainage Procedure Procedure 1 Imaging Guidance: CT Side: Left Procedure Type: Abscess Drainage Procedure: Placement Armenian: 8 Drainage: [place] drainage Fluid Description: Cloudy, Yellow Andres Glover MD Jul 25, 2017 13:59
[2017-07-25] MEDS ORDERED: SODIUM CHLORIDE 0.9% 10 ML VIAL IRRIGATION SCH (14:00)
[2017-07-25] MEDS: POTASSIUM PHOSPHATE INJ 30 MMOL in SODIUM CHLOR 0.9% 250 ML INJ 250 ML IV PRN (15:22)
[2017-07-25] MEDS: BISACODYL EC 5 MG TABEC PO SCH ×2 (17:15→21:53)
[2017-07-25] MEDS ORDERED: SODIUM CHLOR 0.9% 1000 ML INJ 1,000 ML IV SCH (19:15)
[2017-07-25] MEDS: MORPHINE SULFATE 2 MG/ML INJ SQ PRN (23:10)
[2017-07-25] MEDS: VANCOMYCIN INJ 1,250 MG in SODIUM CHLOR 0.9% 250 ML INJ 250 ML IV SCH (23:12)
[2017-07-26] VITALS (16 sets, daily range): BP systolic 92–143; BP diastolic 52–79; PULSE 79–99; RESP 13–27; TEMP 98.1–99.9; O2SAT 91–99
[2017-07-26] MEDS: CEFEPIME INJ 2,000 MG in SODIUM CHLORIDE 0.9% INJ 100 ML IV SCH ×2 (02:34→14:14)
[2017-07-26 02:37] LABS: AUTOMATED NEUTROPHIL # 7.2 TH/MM3 (1.8-7.7); BASOPHIL % 0.4 % (0.0-2.0); EOSINOPHIL # 0.1 TH/MM3 (0-0.4); HEMATOCRIT 27.7 % (35.0-46.0); LYMPH % 9.8 % (9.0-44.0); LYMPHOCYTE # 0.9 TH/MM3 (1.0-4.8); MEAN CELL VOLUME 87.5 FL (80.0-100.0); MEAN CORPUSCULAR HEMOGLOBIN 28.9 PG (27.0-34.0); NEUT % 81.8 % (16.0-70.0); PLATELET COUNT 106 TH/MM3 (150-450); RED BLOOD COUNT 3.17 MIL/MM3 (4.00-5.30); RED CELL DISTRIBUTION WIDTH 13.5 % (11.6-17.2); WHITE BLOOD COUNT 8.8 TH/MM3 (4.0-11.0)
[2017-07-26 02:43] LABS: HEMO FLAGS AUTO DIFF
[2017-07-26 03:18] LABS: BICARBONATE 24.7 MEQ/L (21.0-32.0); POTASSIUM 3.3 MEQ/L (3.5-5.1)
[2017-07-26 03:23] LABS: BANDS 28 % (0-6); NEUTROPHIL # MANUAL DIFF 7.4 TH/MM3 (1.8-7.7); PLATELET ESTIMATE SMEAR LOW (NORMAL); PLATELET MORPHOLOGY NORMAL (NORMAL); POLYS (SEG NEUTROPHILS) 56 % (16-70); SCAN/DIFF FINAL DIFF MANUAL; WBC DIFF SAMPLE 100
[2017-07-26 03:24] LABS: DOHLE BODIES PRESENT (NONE SEEN)
[2017-07-26 03:34] LABS: CALCIUM-PROTEIN CORRECTED 7.7 MG/DL (8.5-10.1)
[2017-07-26] MEDS: POTASSIUM PHOSPHATE INJ 30 MMOL in SODIUM CHLOR 0.9% 250 ML INJ 250 ML IV PRN (03:58)
[2017-07-26] MEDS: CHLORHEXIDINE GLUCONATE 2 % 1 PACK (2 CLOTHS) TOP SCH (04:00)
[2017-07-26] MEDS: INSULIN NovoLIN REGULAR SUPPLEMENTAL SCALE SQ SCH ×4 (08:00→21:58)
--- NOTE | 2017-07-26 08:22 | HHI.CCPN ---
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 Patient reports that she had a ureteral stone that was complicated by a perforated left ureter. She had a ureteral stent placed at that time which was around 2 weeks ago, and was removed yesterday in [place]. She has had a fever throughout the day today with nausea and vomiting. Left flank pain is very mild, described as a tearing type pain. She took Tylenol about 2 hours prior to arrival for a temp at home of 102.7F. She denies dysuria, hematuria, or pyuria. The CAT scan of the abdomen is significant for perinephric stranding and periureteral stranding with a 6.1 cm rim-enhancing fluid highly suspicious of abscess. 07/26 s/p drainage of perinephric abscess and precordial drain placement by IR yesterday. For Cystoscopy with left retrograde pyelogram and left stent insertion Patient is awake and alert BP is better. Objective Vital Signs Date Time Temp Pulse Resp B/P (MAP) Pulse Ox O2 Delivery O2 Flow Rate FiO2 07/26/17 06:00 95 07/26/17 04:00 98.8 18 143/79 (100) 93 07/24/17 23:06 Room Air Intake and Output 07/26/17 07/26/17 07/27/17 08:00 16:00 00:00 Intake Total 2020 ml Output Total 2250 ml Balance -230 ml Result Diagram: 07/26/17 0210 07/26/17 0210 Other Results Laboratory Tests Test 07/25/17 10:39 07/26/17 02:10 White Blood Count 8.5 TH/MM3 8.8 TH/MM3 Red Blood Count 3.34 MIL/MM3 3.17 MIL/MM3 Hemoglobin 9.8 GM/DL 9.1 GM/DL Hematocrit 29.1 % 27.7 % Mean Corpuscular Volume 87.0 FL 87.5 FL Mean Corpuscular Hemoglobin 29.4 PG 28.9 PG Mean Corpuscular Hemoglobin Concent 33.8 % 33.0 % Red Cell Distribution Width 13.2 % 13.5 % Platelet Count 127 TH/MM3 106 TH/MM3 Mean Platelet Volume 9.1 FL 9.1 FL Neutrophils (%) (Auto) 92.4 % 81.8 % Lymphocytes (%) (Auto) 4.2 % 9.8 % Monocytes (%) (Auto) 3.2 % 7.0 % Eosinophils (%) (Auto) 0.0 % 1.0 % Basophils (%) (Auto) 0.2 % 0.4 % Neutrophils # (Auto) 7.9 TH/MM3 7.2 TH/MM3 Lymphocytes # (Auto) 0.4 TH/MM3 0.9 TH/MM3 Monocytes # (Auto) 0.3 TH/MM3 0.6 TH/MM3 Eosinophils # (Auto) 0.0 TH/MM3 0.1 TH/MM3 Basophils # (Auto) 0.0 TH/MM3 0.0 TH/MM3 CBC Comment DIFF FINAL AUTO DIFF Differential Comment FINAL DIFF MANUAL Blood Urea Nitrogen 13 MG/DL 10 MG/DL Creatinine 1.01 MG/DL 0.57 MG/DL Random Glucose 148 MG/DL 101 MG/DL Calcium Level 7.8 MG/DL 7.0 MG/DL Phosphorus Level 1.9 MG/DL 2.3 MG/DL Magnesium Level 0.9 MG/DL Sodium Level 143 MEQ/L 146 MEQ/L Potassium Level 3.1 MEQ/L 3.3 MEQ/L Chloride Level 109 MEQ/L 114 MEQ/L Carbon Dioxide Level 26.5 MEQ/L 24.7 MEQ/L Anion Gap 8 MEQ/L 7 MEQ/L Estimat Glomerular Filtration Rate 57 ML/MIN 110 ML/MIN Differential Total Cells Counted 100 Neutrophils % (Manual) 56 % Band Neutrophils % 28 % Lymphocytes % 14 % Monocytes % 2 % Neutrophils # (Manual) 7.4 TH/MM3 Dohle Bodies PRESENT Platelet Estimate LOW Platelet Morphology Comment NORMAL Total Protein 5.8 GM/DL Protein Corrected Calcium 7.7 MG/DL Random Vancomycin Level 23.2 COMMENT Imaging Last Impressions Abdomen/Pelvis CT 07/25/17 0046 Signed Impressions: Service Date/Time: Tuesday, July 25, 2017 01:15 - CONCLUSION: 1. Fat-containing ventral hernias. 2. Mild left hydronephrosis and hydroureter with a 3.7 mm calculus in the left proximal ureter. 3. Significant perinephric stranding and periureteral stranding with a 6.1 cm rim-enhancing fluid collection abutting the left psoas muscle. The possibility of a left ureteral injury with organizing fluid collection, possibly abscess versus urinoma collection can have this appearance. The 4. Mild hepatic steatosis. 5. Small hiatal hernia. Jakob Soto MD Objective Remarks GENERAL: Well-nourished, well-developed patient. SKIN: Warm and dry. HEAD: Normocephalic. EYES: No scleral icterus. No injection or drainage. NECK: Supple, trachea midline. No JVD or lymphadenopathy. CARDIOVASCULAR: Regular rate and rhythm without murmurs, gallops, or rubs. RESPIRATORY: Breath sounds equal bilaterally. No accessory muscle use. GASTROINTESTINAL: Abdomen soft, non-tender, nondistended. MUSCULOSKELETAL: No cyanosis, or edema. BACK: Nontender without obvious deformity. NEURO EXAM: Awake and alert. A/P Assessment and Plan Perinephritic abscess Severe Sepsis Hypotension- responded to fluid resuscitation h/o ureteral stent placement after a perforation of ureter on left side s/p removal UTI KORIN- resolved Anemia, thrombocytopenia Hx Hypertension Depressions Diabetes mellitus type 2 Plan Neuro: Awake and alert Pulm: Continue with oxygen keep sat >92% Bronchodilators PRN CV: Monitor HR and BP keep MAP>65mmHg Decrease NS 75ml/hr, Lactic acid 1.8 Received additional 3L NS boluses yesterday. : Monitor renal function, electrolytes replacement per protocol. Needs K, Phos replacement today s/p CT guided drainage of perinephric abscess and drain placement 07/25- monitor drainage ( drained 1350ml since yesterday) For Cystoscopy with left retrograde pyelogram and left stent insertion- Urology-Dr. Carter GI: NPO, on Pepcid 10mg Q12 ID: Continue with abx (Cefepime, Vanco) ID is following. Monitor for signs of infections ( Fever, WBC) follow up on cultures. Fluid and urine cx: GNR Heme: Monitor CBC Endo: SSI to maintain euglycemia GI prophylaxis - on Pepcid DVT prophylaxis - on SCD Level 3 Ashley Gresham MD Jul 26, 2017 08:22
--- NOTE | 2017-07-26 08:50 | PD.OP ---
Operative Report Date of Surgery: Jul 26, 2017 Preoperative Diagnosis: Urinoma left kidney Postoperative Diagnosis: Same Procedure: Cystoscopy with left retrograde pyelogram and left double-J stent insertion Anesthesia: ANTHONY Surgeon: Arya Carter Jewelry Facer(s): None Resident Surgeon: None Operation and Findings: 57-year-old female with a history of a left ureteral calculus. Patient underwent left ureteroscopy with laser lithotripsy in [place] and was noted to have a left ureteral injury during the time of the procedure. Initially, a Steel catheter was left in place along with the stent and the Steel catheter was then removed. The stent was removed approximately one week ago and then she decided to travel down to the [place]. While here she developed left- sided flank pain with nausea and vomiting and a CT scan in the emergency room demonstrated a urinoma which was infected along the proximal left ureter below the kidney. A drain was placed yesterday by special procedures and today she elected to undergo cystoscopy with reinsertion of a left double-J stent. Risk and benefits were discussed preoperatively including further injury to her ureter as well as the need for a left percutaneous nephrostomy tube. She was weaned to proceed. Patient is brought to the operating room and identified by myself as Zuleyka Palafox. She is placed in the dorsal lithotomy position, prepped and draped in usual sterile fashion, received preprocedure antibiotics and general endotracheal tube anesthesia was induced. 22 Icelandic cystoscope was inserted in the bladder moreno cystoscopy did not reveal any abnormalities. The left ureteral orifice was identified and a 5 Icelandic opening catheter was inserted into the left ureteral orifice and retrograde pyelogram was performed. Extravasation of contrast was identified along the proximal ureter where the pigtail catheter was in place. A 0.35 sensor wire was then passed through the open-ended catheter and left in place with a good curl in the kidney. The open- ended catheter was then removed leaving the wire in place and a 6 Icelandic 22 cm Bard terminal operator stent was in place without difficulty. A 16 Icelandic Steel was then inserted completion of the case. She was awoken and extubated and transferred to recovery room in stable condition. She will follow-up with her urologist in [place]. The Steel will remain in place until that time. Arya Carter DO Jul 26, 2017 08:50
[2017-07-26] MEDS: SODIUM CHLORIDE 0.9% FLUSH 10 ML FLUSH IV FLUSH SCH ×2 (09:00→21:00)
[2017-07-26] MEDS ORDERED: DO NOT ADM ANY ANTICOAGULANT DRUGS PRN (09:00)
[2017-07-26] MEDS: DOCUSATE SODIUM 50 MG/SENNA 8.6 MG TAB PO SCH ×2 (09:00→21:00)
[2017-07-26] MEDS ORDERED: *MEPERIDINE 25 MG INJ VIAL PERIprocedural Use ONLY ONE (09:12)
[2017-07-26] MEDS ORDERED: IOHEXOL 350 MG/ML 50 ML BTL (for RAD DIAG) OTHER ONE (09:18)
[2017-07-26] MEDS: SERTRALINE HCL 50 MG TAB PO SCH (10:04)
[2017-07-26] MEDS ORDERED: PHENAZOPYRIDINE HCL 100 MG TAB PO PRN (10:15)
--- NOTE | 2017-07-26 10:33 | HHI.IDPN ---
Subjective Subjective Remarks is a 57 y/o CF with PMHx of recurrent UTI, pyelonephritis, ureteral stones, s.p cystoscopy and ureteral stent placement 3 weeks back in [place]. Patient reports the ureter was perforated and a stent placed. 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 She had her stent removed 5-6 days prior to admission. She reports she went back to work and was dragging herself. She has never had to do this but while walking from her work to her car she had to pause and wait due to weakness. She felt ok so the family decided to come to [place], [place] for a vacation. Enroute on her road trip her she felt chills, nausea and vomiting. Left flank pain radiating to knee area was felt and described as tearing type. She reports a temp of 102 F prior to admission. She denies dysuria, hematuria, or pyuria. The CAT scan of the abdomen is significant for perinephric stranding and periureteral stranding with a 6.1 cm rim-enhancing fluid highly suspicious of abscess. She denies any h/o MDRO, ESBLs. She reports allergy to penicillin with closing of her airway but has tolerated Keflex well. She reports allergy to bactrim. At the time of my evaluation, patient was in [facility]: awake, alert following commands. She had a ponce in place with blood tinged urine. She was not on pressors but her BP was 88/54 (patient is normally hypertensive on meds). Yeny Martinez who will follow the BP and fluid need assessment. No rash, no diarrhea. ID consulted for evaluation and Mment of severe sepsis, Left pyelonephritis and perinephric abscess. IR consulted for CT guided drainage. Overnight events reviewed. No fevers No rash No diarrhea s/p cystoscopy and J stent placement by today. Antibiotics Cefepime IV Vanco IV Lines Line sites with no e.o infection Past Medical History reviewed Allergies: Coded Allergies: amoxicillin (Verified Allergy, Severe, Anaphylaxis, 07/24/17) sulfamethoxazole (Verified Allergy, Severe, Hives, 07/24/17) trimethoprim (Verified Allergy, Severe, Hives, 07/24/17) Objective . Vital Signs Date Time Temp Pulse Resp B/P (MAP) Pulse Ox O2 Delivery O2 Flow Rate FiO2 07/26/17 09:15 96 18 99/60 (73) 95 Nasal Cannula 2 07/26/17 09:00 102 18 107/62 (77) 96 Nasal Cannula 2 07/26/17 08:55 98.9 107 18 144/72 (96) 92 Nasal Cannula 2 07/26/17 07:20 99 07/26/17 07:00 98.3 94 26 143/68 (93) 93 07/26/17 06:00 95 07/26/17 04:00 98.8 95 18 143/79 (100) 93 07/26/17 04:00 89 07/26/17 02:00 99 07/26/17 00:00 96 07/26/17 00:00 98.7 94 20 94/53 (67) 91 07/25/17 23:15 18 07/25/17 23:10 24 07/25/17 22:00 94 07/25/17 20:00 99 07/25/17 20:00 98.7 99 18 100/58 (72) 94 07/25/17 18:00 97 07/25/17 16:00 95 07/25/17 16:00 98.9 95 15 85/49 (61) 97 07/26/17 07/26/17 07/27/17 15:00 23:00 07:00 Intake Total 500 ml Output Total 450 ml Balance 50 ml Other 500 ml Drainage Total 450 ml # Bowel Movements 1 . Laboratory Tests Test 07/24/17 23:55 07/25/17 10:39 07/26/17 02:10 White Blood Count 15.2 TH/MM3 8.5 TH/MM3 8.8 TH/MM3 Red Blood Count 3.89 MIL/MM3 3.34 MIL/MM3 3.17 MIL/MM3 Hemoglobin 11.4 GM/DL 9.8 GM/DL 9.1 GM/DL Hematocrit 33.3 % 29.1 % 27.7 % Mean Corpuscular Volume 85.6 FL 87.0 FL 87.5 FL Mean Corpuscular Hemoglobin 29.3 PG 29.4 PG 28.9 PG Mean Corpuscular Hemoglobin Concent 34.3 % 33.8 % 33.0 % Red Cell Distribution Width 13.0 % 13.2 % 13.5 % Platelet Count 182 TH/MM3 127 TH/MM3 106 TH/MM3 Mean Platelet Volume 9.2 FL 9.1 FL 9.1 FL Neutrophils (%) (Auto) 87.3 % 92.4 % 81.8 % Lymphocytes (%) (Auto) 4.6 % 4.2 % 9.8 % Monocytes (%) (Auto) 7.6 % 3.2 % 7.0 % Eosinophils (%) (Auto) 0.1 % 0.0 % 1.0 % Basophils (%) (Auto) 0.4 % 0.2 % 0.4 % Neutrophils # (Auto) 13.3 TH/MM3 7.9 TH/MM3 7.2 TH/MM3 Lymphocytes # (Auto) 0.7 TH/MM3 0.4 TH/MM3 0.9 TH/MM3 Monocytes # (Auto) 1.2 TH/MM3 0.3 TH/MM3 0.6 TH/MM3 Eosinophils # (Auto) 0.0 TH/MM3 0.0 TH/MM3 0.1 TH/MM3 Basophils # (Auto) 0.1 TH/MM3 0.0 TH/MM3 0.0 TH/MM3 CBC Comment DIFF FINAL DIFF FINAL AUTO DIFF Differential Comment FINAL DIFF MANUAL Differential Total Cells Counted 100 Neutrophils % (Manual) 56 % Band Neutrophils % 28 % Lymphocytes % 14 % Monocytes % 2 % Neutrophils # (Manual) 7.4 TH/MM3 Dohle Bodies PRESENT Platelet Estimate LOW Platelet Morphology Comment NORMAL Laboratory Tests Test 07/24/17 23:55 07/25/17 07:55 07/25/17 10:39 07/26/17 02:10 Blood Urea Nitrogen 15 MG/DL 13 MG/DL 10 MG/DL Creatinine 1.19 MG/DL 1.01 MG/DL 0.57 MG/DL Random Glucose 180 MG/DL 148 MG/DL 101 MG/DL Total Protein 7.8 GM/DL 5.8 GM/DL Albumin 3.6 GM/DL Calcium Level 9.0 MG/DL 7.8 MG/DL 7.0 MG/DL Alkaline Phosphatase 77 U/L Aspartate Amino Transf (AST/SGOT) 18 U/L Alanine Aminotransferase (ALT/SGPT) 19 U/L Total Bilirubin 0.8 MG/DL Sodium Level 135 MEQ/L 143 MEQ/L 146 MEQ/L Potassium Level 3.3 MEQ/L 3.1 MEQ/L 3.3 MEQ/L Chloride Level 100 MEQ/L 109 MEQ/L 114 MEQ/L Carbon Dioxide Level 26.8 MEQ/L 26.5 MEQ/L 24.7 MEQ/L Anion Gap 8 MEQ/L 8 MEQ/L 7 MEQ/L Estimat Glomerular Filtration Rate 47 ML/MIN 57 ML/MIN 110 ML/MIN Lactic Acid Level 1.9 mmol/L 1.8 mmol/L Phosphorus Level 1.9 MG/DL 2.3 MG/DL Magnesium Level 0.9 MG/DL Protein Corrected Calcium 7.7 MG/DL Microbiology Date/Time Source Procedure Growth Status 07/25/17 07:55 Blood Peripheral Aerobic Blood Culture Pending Received 07/25/17 07:55 Blood Peripheral Anaerobic Blood Culture Pending Received 07/24/17 23:50 Blood Peripheral Aerobic Blood Culture Pending Received 07/24/17 23:50 Blood Peripheral Anaerobic Blood Culture Pending Received 07/24/17 23:55 Urine Catheterized Urine Urine Culture - Preliminary Gram Negative Octavio Resulted 07/25/17 13:00 Abscess Kidney Gram Stain - Final Resulted 07/25/17 13:00 Abscess Kidney Wound Culture Pending Resulted Imaging Last Impressions Abdomen/Pelvis CT 07/25/17 0046 Signed Impressions: Service Date/Time: Tuesday, July 25, 2017 01:15 - CONCLUSION: 1. Fat-containing ventral hernias. 2. Mild left hydronephrosis and hydroureter with a 3.7 mm calculus in the left proximal ureter. 3. Significant perinephric stranding and periureteral stranding with a 6.1 cm rim-enhancing fluid collection abutting the left psoas muscle. The possibility of a left ureteral injury with organizing fluid collection, possibly abscess versus urinoma collection can have this appearance. The 4. Mild hepatic steatosis. 5. Small hiatal hernia. Jakob Soto MD Physical Exam GENERAL: This is a well-nourished, well-developed patient, in no apparent distress. SKIN: No rashes, ecchymoses or lesions. Cool and dry. HEAD: Atraumatic. Normocephalic. No temporal or scalp tenderness. EYES: Pupils equal round and reactive. Extraocular motions intact. No scleral icterus. No injection or drainage. ENT: Nose without bleeding, purulent drainage or septal hematoma. Throat without erythema, tonsillar hypertrophy or exudate. Uvula midline. Airway patent. NECK: Trachea midline. Supple, nontender, no meningeal signs. CARDIOVASCULAR: Regular rate and rhythm without murmurs, gallops, or rubs. RESPIRATORY: Clear to auscultation. Breath sounds equal bilaterally. No wheezes , rales, or rhonchi. GASTROINTESTINAL: Abdomen soft, non-tender, nondistended. MUSCULOSKELETAL: Extremities without clubbing, cyanosis, or edema. No joint tenderness, effusion, or edema noted. No calf tenderness. Negative Homans sign bilaterally. NEUROLOGICAL: Awake and alert. Cranial nerves II through XII intact. Motor and sensory grossly within normal limits. Five out of 5 muscle strength in all muscle groups. Normal speech. Psych cooperative IV line sites with no e.o infection Ponce with blood tinged urine. Assessment & Plan Remarks Severe Sepsis Hypotension s/p 3 bolus IVF. Lactic acid normalized. Left pyelonephritis with perinephric abscess GNR complicated UTI. Possible bacteremia. Possible psoas muscle abscess. h/o ureteral stent placement after a perforation of ureter on left side. 3 wks back at [facility]. acute renal failure: sepsis, prerenal. acute thrombocytopenia: sepsis, meds. Hematuria: likely ureteral perforation related. Recs Continue Cefepime IV (appears to be clinically responding to it) Continue Vanco IV (target 15-20) empiric as the infection was post procedure. If any change in clinical condition consider escalating to Meropenem as pt is at high risk for ESBLs due to multiple antibiotics in recent past. Follow cultures follow clinically. d.w pt and family in room. I will be OOT from 07/27/2017 to 08/23/2017. Other ID MDs covering for me check with call center. Dena Loaiza MD Jul 26, 2017 10:33
[2017-07-26] MEDS ORDERED: GLYCOPYRROLATE 1 MG/5 ML SYRINGE IV PUSH ONE (12:00)
[2017-07-26] MEDS ORDERED: DEXAMETHASONE SOD PHOS 4 MG/ML VIAL IV ONE (12:00)
[2017-07-26] MEDS ORDERED: LIDOCAINE HCL 1% PF 5 ML SYRINGE OTHER ONE (12:00)
[2017-07-26] MEDS ORDERED: PROPOFOL 200 MG/20 ML AMP IV ONE (12:00)
[2017-07-26] MEDS ORDERED: PHENYLEPH/NS 1000 MCG/10 ML SYR IV ONE (12:00)
[2017-07-26] MEDS ORDERED: NEOSTIGMINE 5 MG/5 ML SYRINGE IV PUSH ONE (12:00)
[2017-07-26] MEDS ORDERED: ONDANSETRON HCL 4 MG/2 ML VIAL IV PUSH ONE (12:00)
[2017-07-26] MEDS ORDERED: ROCURONIUM INJ 50 MG/5 ML SYRINGE IV PUSH ONE (12:00)
[2017-07-26] MEDS: FAMOTIDINE 20 MG/2 ML VIAL IV PUSH SCH ×2 (13:06→23:35)
--- NOTE | 2017-07-26 13:21 | EKG ---
Date Performed: 07/26/2017 Time Performed: 09:55:50 PTAGE: 57 years EKG: Sinus rhythm NONSPECIFIC T-WAVE ABNORMALITY BORDERLINE ECG NO PREVIOUS TRACING DOCTOR: Sukhdev Kimbrough Interpretating Date/Time 07/28/2017 07:04:41
[2017-07-26] MEDS: LACTOBACILLUS ACIDOPHILUS TAB PO SCH ×2 (14:14→21:58)
[2017-07-26] MEDS: SODIUM CHLOR 0.9% 1000 ML INJ 1,000 ML IV SCH (14:14)
[2017-07-26] MEDS: VANCOMYCIN INJ 1,250 MG in SODIUM CHLOR 0.9% 250 ML INJ 250 ML IV SCH (16:55)
[2017-07-26 18:37] LABS: POTASSIUM 3.6 MEQ/L (3.5-5.1)
[2017-07-27] VITALS (16 sets, daily range): BP systolic 107–170; BP diastolic 57–86; PULSE 69–89; RESP 12–28; TEMP 98.2–99.6; O2SAT 93–97
[2017-07-27] MEDS: CHLORHEXIDINE GLUCONATE 2 % 1 PACK (2 CLOTHS) TOP SCH (03:45)
[2017-07-27] MEDS: CEFEPIME INJ 2,000 MG in SODIUM CHLORIDE 0.9% INJ 100 ML IV SCH ×2 (03:51→15:02)
[2017-07-27] MEDS: SODIUM CHLOR 0.9% 1000 ML INJ 1,000 ML IV SCH ×2 (03:51→18:14)
[2017-07-27] MEDS: POTASSIUM PHOSPHATE INJ 30 MMOL in SODIUM CHLOR 0.9% 250 ML INJ 250 ML IV PRN (06:40)
[2017-07-27] MEDS: INSULIN NovoLIN REGULAR SUPPLEMENTAL SCALE SQ SCH ×4 (08:00→19:45)
--- NOTE | 2017-07-27 08:11 | HHI.CCPN ---
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 Patient reports that she had a ureteral stone that was complicated by a perforated left ureter. She had a ureteral stent placed at that time which was around 2 weeks ago, and was removed yesterday in [place]. She has had a fever throughout the day today with nausea and vomiting. Left flank pain is very mild, described as a tearing type pain. She took Tylenol about 2 hours prior to arrival for a temp at home of 102.7F. She denies dysuria, hematuria, or pyuria. The CAT scan of the abdomen is significant for perinephric stranding and periureteral stranding with a 6.1 cm rim-enhancing fluid highly suspicious of abscess. 07/26 s/p drainage of perinephric abscess and precordial drain placement by IR yesterday. For Cystoscopy with left retrograde pyelogram and left stent insertion Patient is awake and alert BP is better. 07/27 No events overnight. Patient is lying in bed in [facility]. s/p Cystoscopy and left stent insertion yesterday. Objective Vital Signs Date Time Temp Pulse Resp B/P (MAP) Pulse Ox O2 Delivery O2 Flow Rate FiO2 07/27/17 06:00 70 07/27/17 04:00 98.2 12 107/57 (74) 96 07/26/17 20:44 Nasal Cannula 2.00 Intake and Output 07/27/17 07/27/17 07/28/17 08:00 16:00 00:00 Intake Total 1692 ml Output Total 1375 ml Balance 317 ml Result Diagram: 07/26/17 0210 07/26/17 1806 Other Results Laboratory Tests Test 07/26/17 18:06 Potassium Level 3.6 MEQ/L Phosphorus Level 2.2 MG/DL Imaging Last Impressions Abdomen/Pelvis CT 07/25/17 0046 Signed Impressions: Service Date/Time: Tuesday, July 25, 2017 01:15 - CONCLUSION: 1. Fat-containing ventral hernias. 2. Mild left hydronephrosis and hydroureter with a 3.7 mm calculus in the left proximal ureter. 3. Significant perinephric stranding and periureteral stranding with a 6.1 cm rim-enhancing fluid collection abutting the left psoas muscle. The possibility of a left ureteral injury with organizing fluid collection, possibly abscess versus urinoma collection can have this appearance. The 4. Mild hepatic steatosis. 5. Small hiatal hernia. Jakob Soto MD Objective Remarks GENERAL: Well-nourished, well-developed patient. SKIN: Warm and dry. HEAD: Normocephalic. EYES: No scleral icterus. No injection or drainage. NECK: Supple, trachea midline. No JVD or lymphadenopathy. CARDIOVASCULAR: Regular rate and rhythm without murmurs, gallops, or rubs. RESPIRATORY: Breath sounds equal bilaterally. No accessory muscle use. GASTROINTESTINAL: Abdomen soft, non-tender, nondistended. MUSCULOSKELETAL: No cyanosis, or edema. BACK: Nontender without obvious deformity. NEURO EXAM: Awake and alert. A/P Assessment and Plan Perinephritic abscess Severe Sepsis Hypotension- responded to fluid resuscitation h/o ureteral stent placement after a perforation of ureter on left side s/p removal UTI KORIN- resolved Anemia, thrombocytopenia Hx Hypertension Depressions Diabetes mellitus type 2 Plan Neuro: Awake and alert Pulm: Continue with oxygen keep sat >92% Bronchodilators PRN CV: Monitor HR and BP keep MAP>65mmHg Decrease NS 75ml/hr, Lactic acid 1.8 Received additional 3L NS boluses yesterday. : Monitor renal function, electrolytes replacement per protocol. d/c IVF s/p CT guided drainage of perinephric abscess and drain placement 07/25- monitor drainage ( drained 650ml since yesterday) s/p Cystoscopy with left retrograde pyelogram and left stent insertion - Urology-Dr. Carter GI: on Pepcid 10mg Q12 ID: Continue with abx (Cefepime, Vanco) ID is following. Monitor for signs of infections ( Fever, WBC) follow up on cultures. Fluid and urine cx: GNR Heme: Monitor CBC Endo: SSI to maintain euglycemia GI prophylaxis - on Pepcid DVT prophylaxis - on SCD Will sign off and transfer care to [facility] Level 3 Ashley Gresham MD Jul 27, 2017 08:11
--- NOTE | 2017-07-27 08:25 | HHI.PR ---
Subjective Patient symptoms today Pt seen and examined. Feels better. Urine clear. Objective Vital Signs Vital Signs Date Time Temp Pulse Resp B/P (MAP) Pulse Ox O2 Delivery O2 Flow Rate FiO2 07/27/17 06:00 70 07/27/17 04:00 98.2 80 12 107/57 (74) 96 07/27/17 04:00 80 07/27/17 02:00 75 07/27/17 00:00 99.3 81 20 113/64 (80) 96 07/27/17 00:00 81 07/26/17 22:00 88 07/26/17 20:44 97 Nasal Cannula 2.00 07/26/17 20:00 99.9 89 27 102/61 (75) 96 07/26/17 20:00 89 07/26/17 18:00 81 07/26/17 16:00 88 07/26/17 16:00 98.1 86 22 113/68 (83) 96 07/26/17 16:00 86 07/26/17 15:29 99 Nasal Cannula 2.00 07/26/17 14:00 88 07/26/17 12:05 101/59 (73) 07/26/17 12:00 98.7 79 13 92/52 (65) 97 07/26/17 12:00 92 07/26/17 10:00 82 07/26/17 09:15 96 18 99/60 (73) 95 Nasal Cannula 2 07/26/17 09:00 102 18 107/62 (77) 96 Nasal Cannula 2 07/26/17 08:55 98.9 107 18 144/72 (96) 92 Nasal Cannula 2 Intake & Output 07/27/17 07/27/17 07:00 19:00 Intake Total 1692 ml Output Total 1375 ml Balance 317 ml Intake Oral 480 ml IV Total 1212 ml Output Urine Total 1375 ml # Bowel Movements 1 Result Diagram: 07/26/1720907/26/171805 Objective Remarks Abd:soft,nt,nd Ponce and abdominal drain clear Medications and IVs Current Medications Medications (Trade) Dose Ordered Sig/Wayne Route Start Time Stop Time Status Last Admin (Zoloft) 50 mg DAILY PO 07/25/17 09:00 07/26/17 10:04 (NovoLIN R SUPPLEMENTAL SCALE) 1 ACHS SLIDING SCALE SQ 07/25/17 08:00 07/26/17 21:58 Sodium Chloride 1,000 ml @ 75 mls/hr [id number] IV 07/25/17 02:28 07/27/17 03:51 (NS Flush) 2 ml UNSCH PRN IV FLUSH 07/25/17 02:30 (NS Flush) 2 ml BID IV FLUSH 07/25/17 09:00 07/25/17 21:00 (Tylenol) 650 mg Q6H PRN PO 07/25/17 02:30 07/25/17 22:10 (Zofran Inj) 4 mg Q6H PRN IV PUSH 07/25/17 02:30 (Ambien) 5 mg HS PRN PO 07/25/17 02:30 (Duoneb Neb) 1 ampule Q2HR NEB PRN INH 07/25/17 02:30 Miscellaneous Information 1 Q361D XX 07/25/17 02:30 (Chlorhexidine 2% Cloth) 3 pack Taper DAILY@04 TOP 07/25/17 04:00 07/21/18 03:59 07/26/17 04:00 (Chlorhexidine 2% Cloth) 3 pack UNSCH PRN TOP 07/25/17 02:30 (Kati-Colace) 1 tab BID PO 07/25/17 09:00 (Milk Of Magnesia Liq) 30 ml Q12H PRN PO 07/25/17 02:30 (Senokot) 17.2 mg Q12H PRN PO 07/25/17 02:30 (Dulcolax Supp) 10 mg DAILY PRN RECTAL 07/25/17 02:30 (Lactulose Liq) 30 ml DAILY PRN PO 07/25/17 02:30 Cefepime HCl 2000 mg/Sodium Chloride 100 ml @ 100 mls/hr Q12H IV 07/25/17 03:00 07/27/17 03:51 Pharmacy Profile Note 0 ml @ 0 mls/hr UNSCH OTHER 07/25/17 02:30 (D50w (Vial) Inj) 50 ml UNSCH PRN IV PUSH 07/25/17 09:30 (Glucagon Inj) 1 mg UNSCH PRN OTHER 07/25/17 09:30 Potassium Chloride 100 ml @ 50 mls/hr Q2H PRN IV 07/25/17 09:30 Potassium Chloride 100 ml @ 50 mls/hr Q2H PRN IV 07/25/17 09:30 (K-Lyte Cl Eff) 50 meq UNSCH PRN PO 07/25/17 09:30 Potassium Chloride 100 ml @ 25 mls/hr UNSCH PRN IV 07/25/17 09:30 Potassium Chloride 100 ml @ 50 mls/hr Q2H PRN IV 07/25/17 09:30 Magnesium Sulfate 4 gm/Sodium Chloride 100 ml @ 50 mls/hr UNSCH PRN IV 07/25/17 09:30 07/25/17 15:42 (Mag-Ox) 800 mg UNSCH PRN PO 07/25/17 09:30 Magnesium Sulfate 2 gm/Sodium Chloride 100 ml @ 50 mls/hr UNSCH PRN IV 07/25/17 09:30 (K-Phos) 2,000 mg Q4H PRN PO 07/25/17 09:30 Sodium Phosphate 30 mmol/Sodium Chloride 250 ml @ 42 mls/hr UNSCH PRN IV 07/25/17 09:30 (K-Phos) 2,000 mg UNSCH PRN PO/TUBE 07/25/17 09:30 Potassium Phosphate 30 mmol/ Sodium Chloride 260 ml @ 42 mls/hr UNSCH PRN IV 07/25/17 09:30 07/27/17 06:40 (Pepcid Inj) 10 mg Q12H IV PUSH 07/25/17 12:00 07/26/17 23:35 (NS Inj) 10 ml UNSCH IRRIGATION 07/25/17 14:00 Vancomycin HCl 1250 mg/Sodium Chloride 262.5 ml @ 250 mls/hr Q18H IV 07/25/17 23:00 07/26/17 16:55 (Morphine Inj) 2 mg Q3H PRN SQ 07/25/17 23:00 07/25/17 23:10 (Motrin) 400 mg Q6H PRN PO 07/26/17 08:45 Miscellaneous Information ALL NURSING DEPARTME... UNSCH PRN .XX 07/26/17 09:00 07/27/17 08:59 (Pyridium) 100 mg Q8H PRN PO 07/26/17 10:15 07/26/17 13:06 (Lactinex) 1 tab Q12HR PO 07/26/17 13:45 07/26/17 21:58 Assessment and Plan Assessment and Plan Stable s/p cysto with left JJ stent insertion with placement of abdominal drain Change abdominal drain to EDWARD drain off suction and monitor output Consider repeat scan in 24 hours; if urinoma cleared consider removing abdominal drain prior to discharge Maintain ponce catheter and d/c home with catheter in place Arya Carter DO Jul 27, 2017 08:25
[2017-07-27] MEDS: DOCUSATE SODIUM 50 MG/SENNA 8.6 MG TAB PO SCH ×2 (09:00→19:44)
[2017-07-27] MEDS: SODIUM CHLORIDE 0.9% FLUSH 10 ML FLUSH IV FLUSH SCH ×2 (09:18→19:45)
[2017-07-27] MEDS: LACTOBACILLUS ACIDOPHILUS TAB PO SCH ×2 (09:18→19:45)
[2017-07-27] MEDS: SERTRALINE HCL 50 MG TAB PO SCH (09:18)
--- NOTE | 2017-07-27 09:28 | HHI.IDPN ---
Subjective Subjective Remarks ID COVERAGE is a 57 y/o CF with PMHx of recurrent UTI, pyelonephritis, ureteral stones, s.p cystoscopy and ureteral stent placement 3 weeks back in [place]. Patient reports the ureter was perforated and a stent placed. She reports being on Macrobid till 5 days [employer]. She had her stent removed 5-6 days prior to admission. She reports she went back to work and was dragging herself. She has never had to do this but while walking from her work to her car she had to pause and wait due to weakness. She felt ok so the family decided to come to [place], [place] for a vacation. Enroute on her road trip her she felt chills, nausea and vomiting. Left flank pain radiating to knee area was felt and described as tearing type. She reports a temp of 102 F prior to admission. She denies dysuria, hematuria, or pyuria. The CAT scan of the abdomen is significant for perinephric stranding and periureteral stranding with a 6.1 cm rim-enhancing fluid highly suspicious of abscess. ID consulted for evaluation and Mment of severe sepsis, Left pyelonephritis and perinephric abscess. IR consulted for CT guided drainage. Notes reviewed D/W RN Patient has percutaneous drain to the L kidney Also S/P cysto and placement of stent Afebrile BP good No pain No rash or itching No diarrhea UC and C/S from drain with GNR - no ID yet WBC down to normal BC negative Antibiotics Current Medications Cefepime Vancomycin Medications (Trade) Dose Ordered Sig/Wayne Route Start Time Stop Time Status Last Admin (Zoloft) 50 mg DAILY PO 07/25/17 09:00 07/27/17 09:18 (NovoLIN R SUPPLEMENTAL SCALE) 1 ACHS SLIDING SCALE SQ 07/25/17 08:00 07/26/17 21:58 Sodium Chloride 1,000 ml @ 75 mls/hr [id number] IV 07/25/17 02:28 07/27/17 03:51 (NS Flush) 2 ml UNSCH PRN IV FLUSH 07/25/17 02:30 07/27/17 09:18 (NS Flush) 2 ml BID IV FLUSH 07/25/17 09:00 07/27/17 09:18 (Tylenol) 650 mg Q6H PRN PO 07/25/17 02:30 07/25/17 22:10 (Zofran Inj) 4 mg Q6H PRN IV PUSH 07/25/17 02:30 (Ambien) 5 mg HS PRN PO 07/25/17 02:30 (Duoneb Neb) 1 ampule Q2HR NEB PRN INH 07/25/17 02:30 Miscellaneous Information 1 Q361D XX 07/25/17 02:30 (Chlorhexidine 2% Cloth) 3 pack Taper DAILY@04 TOP 07/25/17 04:00 07/21/18 03:59 07/26/17 04:00 (Chlorhexidine 2% Cloth) 3 pack UNSCH PRN TOP 07/25/17 02:30 (Kati-Colace) 1 tab BID PO 07/25/17 09:00 (Milk Of Magnesia Liq) 30 ml Q12H PRN PO 07/25/17 02:30 (Senokot) 17.2 mg Q12H PRN PO 07/25/17 02:30 (Dulcolax Supp) 10 mg DAILY PRN RECTAL 07/25/17 02:30 (Lactulose Liq) 30 ml DAILY PRN PO 07/25/17 02:30 Cefepime HCl 2000 mg/Sodium Chloride 100 ml @ 100 mls/hr Q12H IV 07/25/17 03:00 07/27/17 03:51 Pharmacy Profile Note 0 ml @ 0 mls/hr UNSCH OTHER 07/25/17 02:30 (D50w (Vial) Inj) 50 ml UNSCH PRN IV PUSH 07/25/17 09:30 (Glucagon Inj) 1 mg UNSCH PRN OTHER 07/25/17 09:30 Potassium Chloride 100 ml @ 50 mls/hr Q2H PRN IV 07/25/17 09:30 Potassium Chloride 100 ml @ 50 mls/hr Q2H PRN IV 07/25/17 09:30 (K-Lyte Cl Eff) 50 meq UNSCH PRN PO 07/25/17 09:30 Potassium Chloride 100 ml @ 25 mls/hr UNSCH PRN IV 07/25/17 09:30 Potassium Chloride 100 ml @ 50 mls/hr Q2H PRN IV 07/25/17 09:30 Magnesium Sulfate 4 gm/Sodium Chloride 100 ml @ 50 mls/hr UNSCH PRN IV 07/25/17 09:30 07/25/17 15:42 (Mag-Ox) 800 mg UNSCH PRN PO 07/25/17 09:30 Magnesium Sulfate 2 gm/Sodium Chloride 100 ml @ 50 mls/hr UNSCH PRN IV 07/25/17 09:30 (K-Phos) 2,000 mg Q4H PRN PO 07/25/17 09:30 Sodium Phosphate 30 mmol/Sodium Chloride 250 ml @ 42 mls/hr UNSCH PRN IV 07/25/17 09:30 (K-Phos) 2,000 mg UNSCH PRN PO/TUBE 07/25/17 09:30 Potassium Phosphate 30 mmol/ Sodium Chloride 260 ml @ 42 mls/hr UNSCH PRN IV 07/25/17 09:30 07/27/17 06:40 (Pepcid Inj) 10 mg Q12H IV PUSH 07/25/17 12:00 07/26/17 23:35 (NS Inj) 10 ml UNSCH IRRIGATION 07/25/17 14:00 Vancomycin HCl 1250 mg/Sodium Chloride 262.5 ml @ 250 mls/hr Q18H IV 07/25/17 23:00 07/26/17 16:55 (Morphine Inj) 2 mg Q3H PRN SQ 07/25/17 23:00 07/25/17 23:10 (Motrin) 400 mg Q6H PRN PO 07/26/17 08:45 (Pyridium) 100 mg Q8H PRN PO 07/26/17 10:15 07/26/17 13:06 (Lactinex) 1 tab Q12HR PO 07/26/17 13:45 07/27/17 09:18 Lines Line sites with no e.o infection Past Medical History reviewed Allergies: Coded Allergies: amoxicillin (Verified Allergy, Severe, Anaphylaxis, 07/24/17) sulfamethoxazole (Verified Allergy, Severe, Hives, 07/24/17) trimethoprim (Verified Allergy, Severe, Hives, 07/24/17) Objective . Vital Signs Date Time Temp Pulse Resp B/P (MAP) Pulse Ox O2 Delivery O2 Flow Rate FiO2 07/27/17 06:00 70 07/27/17 04:00 98.2 80 12 107/57 (74) 96 07/27/17 04:00 80 07/27/17 02:00 75 07/27/17 00:00 99.3 81 20 113/64 (80) 96 07/27/17 00:00 81 07/26/17 22:00 88 07/26/17 20:44 97 Nasal Cannula 2.00 07/26/17 20:00 99.9 89 27 102/61 (75) 96 07/26/17 20:00 89 07/26/17 18:00 81 07/26/17 16:00 88 07/26/17 16:00 98.1 86 22 113/68 (83) 96 07/26/17 16:00 86 07/26/17 15:29 99 Nasal Cannula 2.00 07/26/17 14:00 88 07/26/17 12:05 101/59 (73) 07/26/17 12:00 98.7 79 13 92/52 (65) 97 07/26/17 12:00 92 07/26/17 10:00 82 . Laboratory Tests Test 07/25/17 10:39 07/26/17 02:10 White Blood Count 8.5 TH/MM3 8.8 TH/MM3 Red Blood Count 3.34 MIL/MM3 3.17 MIL/MM3 Hemoglobin 9.8 GM/DL 9.1 GM/DL Hematocrit 29.1 % 27.7 % Mean Corpuscular Volume 87.0 FL 87.5 FL Mean Corpuscular Hemoglobin 29.4 PG 28.9 PG Mean Corpuscular Hemoglobin Concent 33.8 % 33.0 % Red Cell Distribution Width 13.2 % 13.5 % Platelet Count 127 TH/MM3 106 TH/MM3 Mean Platelet Volume 9.1 FL 9.1 FL Neutrophils (%) (Auto) 92.4 % 81.8 % Lymphocytes (%) (Auto) 4.2 % 9.8 % Monocytes (%) (Auto) 3.2 % 7.0 % Eosinophils (%) (Auto) 0.0 % 1.0 % Basophils (%) (Auto) 0.2 % 0.4 % Neutrophils # (Auto) 7.9 TH/MM3 7.2 TH/MM3 Lymphocytes # (Auto) 0.4 TH/MM3 0.9 TH/MM3 Monocytes # (Auto) 0.3 TH/MM3 0.6 TH/MM3 Eosinophils # (Auto) 0.0 TH/MM3 0.1 TH/MM3 Basophils # (Auto) 0.0 TH/MM3 0.0 TH/MM3 CBC Comment DIFF FINAL AUTO DIFF Differential Comment FINAL DIFF MANUAL Differential Total Cells Counted 100 Neutrophils % (Manual) 56 % Band Neutrophils % 28 % Lymphocytes % 14 % Monocytes % 2 % Neutrophils # (Manual) 7.4 TH/MM3 Dohle Bodies PRESENT Platelet Estimate LOW Platelet Morphology Comment NORMAL Laboratory Tests Test 07/25/17 10:39 07/26/17 02:10 07/26/17 18:06 Blood Urea Nitrogen 13 MG/DL 10 MG/DL Creatinine 1.01 MG/DL 0.57 MG/DL Random Glucose 148 MG/DL 101 MG/DL Calcium Level 7.8 MG/DL 7.0 MG/DL Phosphorus Level 1.9 MG/DL 2.3 MG/DL 2.2 MG/DL Magnesium Level 0.9 MG/DL 2.0 MG/DL Sodium Level 143 MEQ/L 146 MEQ/L Potassium Level 3.1 MEQ/L 3.3 MEQ/L 3.6 MEQ/L Chloride Level 109 MEQ/L 114 MEQ/L Carbon Dioxide Level 26.5 MEQ/L 24.7 MEQ/L Anion Gap 8 MEQ/L 7 MEQ/L Estimat Glomerular Filtration Rate 57 ML/MIN 110 ML/MIN Total Protein 5.8 GM/DL Protein Corrected Calcium 7.7 MG/DL Microbiology Date/Time Source Procedure Growth Status 07/25/17 07:55 Blood Peripheral Aerobic Blood Culture - Preliminary NO GROWTH IN 1 DAY Resulted 07/25/17 07:55 Blood Peripheral Anaerobic Blood Culture - Preliminary NO GROWTH IN 1 DAY Resulted 07/24/17 23:50 Blood Peripheral Aerobic Blood Culture - Preliminary NO GROWTH IN 1 DAY Resulted 07/24/17 23:50 Blood Peripheral Anaerobic Blood Culture - Preliminary NO GROWTH IN 1 DAY Resulted 07/24/17 23:55 Urine Catheterized Urine Urine Culture - Preliminary Gram Negative Octavio Resulted 07/25/17 13:00 Abscess Kidney Gram Stain - Final Resulted 07/25/17 13:00 Wound Culture - Preliminary Gram Negative Octavio Resulted Imaging Last Impressions Abdomen/Pelvis CT 07/25/17 0046 Signed Impressions: Service Date/Time: Tuesday, July 25, 2017 01:15 - CONCLUSION: 1. Fat-containing ventral hernias. 2. Mild left hydronephrosis and hydroureter with a 3.7 mm calculus in the left proximal ureter. 3. Significant perinephric stranding and periureteral stranding with a 6.1 cm rim-enhancing fluid collection abutting the left psoas muscle. The possibility of a left ureteral injury with organizing fluid collection, possibly abscess versus urinoma collection can have this appearance. The 4. Mild hepatic steatosis. 5. Small hiatal hernia. Jakob Soto MD Physical Exam GENERAL:Awake and alert, NAD, not toxic appearing SKIN: No rashes, ecchymoses or lesions. Cool and dry. HEAD: Atraumatic. Normocephalic. No temporal or scalp tenderness. EYES: Pupils equal round and reactive. Extraocular motions intact. No scleral icterus. No injection or drainage. ENT: Nose without bleeding, purulent drainage or septal hematoma. Throat without erythema or exudate. NECK: Trachea midline. Supple, nontender, no meningeal signs. CARDIOVASCULAR: Regular rate and rhythm without murmurs, gallops, or rubs. RESPIRATORY: Clear to auscultation. Breath sounds equal bilaterally. No wheezes , rales, or rhonchi. GASTROINTESTINAL: Abdomen soft, non-tender, nondistended. MUSCULOSKELETAL: Extremities without clubbing, cyanosis, or edema. No joint tenderness, effusion, or edema noted. No calf tenderness. Negative Homans sign bilaterally. BACK: Drain in place, fluid clear urine; not tender NEUROLOGICAL: Grossly noon-focal Psych cooperative IV line sites with no evidence of infection Steel with clear urine Assessment & Plan Remarks Severe Sepsis Hypotension, resolved S/P 3 bolus IVF. Lactic acid normalized. Left pyelonephritis with perinephric abscess, has drain in place - S/P cysto and stent placement - UC with GNR GNR complicated UTI. Possible bacteremia. Possible psoas muscle abscess. h/o ureteral stent placement after a perforation of ureter on left side. 3 wks back at [facility]. Acute renal failure: sepsis, prerenal. - resolved Acute thrombocytopenia: sepsis, meds. Hematuria: likely ureteral perforation related. Recs Continue Cefepime IV (appears to be clinically responding to it) Continue Vanco IV (target 15-20) empiric as the infection was post procedure. If any change in clinical condition consider escalating to Meropenem as pt is at high risk for ESBLs due to multiple antibiotics in recent past. Follow cultures and adjust Abx Monitor progress She is clinically improving Explained plan to patient D/W Jamila Erwin MD Jul 27, 2017 09:28
[2017-07-27] MEDS: FAMOTIDINE 20 MG/2 ML VIAL IV PUSH SCH (11:48)
[2017-07-27] MEDS: VANCOMYCIN INJ 1,250 MG in SODIUM CHLOR 0.9% 250 ML INJ 250 ML IV SCH (11:48)
[2017-07-27 11:58] LABS: AUTOMATED NEUTROPHIL # 8.7 TH/MM3 (1.8-7.7); BASOPHIL % 0.4 % (0.0-2.0); EOSINOPHIL # 0.2 TH/MM3 (0-0.4); EOSINOPHIL % 1.5 % (0.0-4.0); HEMATOCRIT 30.3 % (35.0-46.0); HEMO FLAGS DIFF FINAL; LYMPH % 14.4 % (9.0-44.0); LYMPHOCYTE # 1.6 TH/MM3 (1.0-4.8); MEAN CELL VOLUME 86.7 FL (80.0-100.0); MEAN CORPUSCULAR HEMOGLOBIN 29.3 PG (27.0-34.0); MEAN CORPUSCULAR HGB CONC 33.8 % (32.0-36.0); MONO % 4.4 % (0.0-8.0); NEUT % 79.3 % (16.0-70.0); PLATELET COUNT 177 TH/MM3 (150-450); RED CELL DISTRIBUTION WIDTH 13.5 % (11.6-17.2)
[2017-07-27 12:15] LABS: BICARBONATE 25.6 MEQ/L (21.0-32.0); MAGNESIUM 1.7 MG/DL (1.5-2.5); POTASSIUM 3.2 MEQ/L (3.5-5.1)
[2017-07-27 18:55] LABS: POTASSIUM 3.5 MEQ/L (3.5-5.1)
[2017-07-28] VITALS (7 sets, daily range): BP systolic 140–174; BP diastolic 65–89; PULSE 71–95; RESP 16–20; TEMP 98.2–99.4; O2SAT 93–95
[2017-07-28] MEDS: FAMOTIDINE 20 MG/2 ML VIAL IV PUSH SCH ×3 (00:02→23:48)
[2017-07-28] MEDS: VANCOMYCIN INJ 1,250 MG in SODIUM CHLOR 0.9% 250 ML INJ 250 ML IV SCH ×3 (00:03→23:48)
[2017-07-28] MEDS: IBUPROFEN 400 MG TAB PO PRN ×2 (00:32→21:00)
[2017-07-28] MEDS: CEFEPIME INJ 2,000 MG in SODIUM CHLORIDE 0.9% INJ 100 ML IV SCH ×2 (03:34→13:49)
[2017-07-28] MEDS: CHLORHEXIDINE GLUCONATE 2 % 1 PACK (2 CLOTHS) TOP SCH (04:00)
[2017-07-28] MEDS: INSULIN NovoLIN REGULAR SUPPLEMENTAL SCALE SQ SCH ×4 (08:00→21:00)
[2017-07-28] MEDS: SERTRALINE HCL 50 MG TAB PO SCH (08:31)
[2017-07-28] MEDS: LACTOBACILLUS ACIDOPHILUS TAB PO SCH ×2 (08:31→21:00)
[2017-07-28] MEDS: SODIUM CHLORIDE 0.9% FLUSH 10 ML FLUSH IV FLUSH SCH ×2 (08:32→21:04)
[2017-07-28] MEDS: SODIUM CHLOR 0.9% 1000 ML INJ 1,000 ML IV SCH ×2 (08:32→20:51)
[2017-07-28] MEDS: DOCUSATE SODIUM 50 MG/SENNA 8.6 MG TAB PO SCH ×2 (08:33→21:00)
--- NOTE | 2017-07-28 09:25 | HHI.PR ---
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 Patient reports that she had a ureteral stone that was complicated by a perforated left ureter. She had a ureteral stent placed at that time which was around 2 weeks ago, and was removed yesterday in [place]. She has had a fever throughout the day today with nausea and vomiting. Left flank pain is very mild, described as a tearing type pain. She took Tylenol about 2 hours prior to arrival for a temp at home of 102.7F. She denies dysuria, hematuria, or pyuria. The CAT scan of the abdomen is significant for perinephric stranding and periureteral stranding with a 6.1 cm rim-enhancing fluid highly suspicious of abscess. 07/26 s/p drainage of perinephric abscess and precordial drain placement by IR yesterday. For Cystoscopy with left retrograde pyelogram and left stent insertion Patient is awake and alert BP is better. 07/27 No events overnight. Patient is lying in bed in [facility]. s/p Cystoscopy and left stent insertion yesterday. Hospitalist Notes: 07/28: Stable seen in her bedroom, in the presence of her , she is followed by her Primary Urology specialist, she is in status post Cystoscopy with left JJ stent insertion with placement of abdominal drain, change abdominal drain to EDWARD drain off suction and monitor output, recommended removal of Abdominal drain per Interventional Radiology, but Maintain Steel cath and follow by Urology specialist in [place] may be discharge Home, Objective Vital Signs Date Time Temp Pulse Resp B/P (MAP) Pulse Ox O2 Delivery O2 Flow Rate FiO2 07/28/17 08:00 98.7 71 20 142/65 (90) 95 07/28/17 04:17 86 07/28/17 04:00 98.2 72 18 162/82 (108) 95 07/28/17 00:00 99.3 84 18 163/85 (111) 93 07/27/17 20:00 99.1 80 20 170/86 (114) 95 07/27/17 20:00 80 07/27/17 18:00 78 07/27/17 16:00 98.3 74 18 136/73 (94) 94 07/27/17 16:00 74 07/27/17 15:00 76 20 137/79 (98) 95 07/27/17 14:00 77 07/27/17 14:00 77 25 128/77 (94) 97 07/27/17 13:00 81 25 134/67 (89) 97 07/27/17 12:00 99.6 77 20 117/68 (84) 96 07/27/17 12:00 77 07/27/17 11:25 81 28 121/63 (82) 96 07/27/17 10:00 89 21 152/82 (105) 93 07/27/17 10:00 89 I/O 07/27/17 07/27/17 07/27/17 07/28/17 07/28/17 07/28/17 06:59 14:59 22:59 06:59 14:59 22:59 Intake Total 1692 ml 2386 ml 500 ml 220 ml Output Total 1375 ml 3375 ml 3600 ml Balance 317 ml -989 ml -3100 ml 220 ml Intake Oral 480 ml 988 ml 120 ml IV Total 1212 ml 1398 ml 500 ml 100 ml Output Urine Total 1375 ml 3125 ml 3600 ml Drainage Total 250 ml # Bowel Movements 1 Result Diagram: 07/27/17 1141 07/27/17 1811 Imaging Last Impressions Abdomen/Pelvis CT 07/25/17 0046 Signed Impressions: Service Date/Time: Tuesday, July 25, 2017 01:15 - CONCLUSION: 1. Fat-containing ventral hernias. 2. Mild left hydronephrosis and hydroureter with a 3.7 mm calculus in the left proximal ureter. 3. Significant perinephric stranding and periureteral stranding with a 6.1 cm rim-enhancing fluid collection abutting the left psoas muscle. The possibility of a left ureteral injury with organizing fluid collection, possibly abscess versus urinoma collection can have this appearance. The 4. Mild hepatic steatosis. 5. Small hiatal hernia. Jakob Soto MD Procedures s/p CT guided drainage of perinephric abscess and drain placement 07/25- monitor drainage ( drained 650ml since yesterday) s/p Cystoscopy with left retrograde pyelogram and left stent insertion 07/26- Urology-Dr. Raul Other Results Laboratory Tests Test 07/24/17 23:55 07/25/17 03:48 07/25/17 07:55 07/26/17 02:10 Prothrombin Time 11.3 SEC Prothromb Time International Ratio 1.1 RATIO Activated Partial Thromboplast Time 24.9 SEC Urine Color ORANGE Urine Turbidity HAZY Urine pH 6.0 Urine Specific [place] 1.014 Urine Protein TRACE mg/dL Urine Glucose (UA) NEG mg/dL Urine Ketones NEG mg/dL Urine Occult Blood SMALL Urine Nitrite POS Urine Bilirubin NEG Urine Urobilinogen 2.0 MG/DL Urine Leukocyte Esterase LARGE Urine RBC 14 /hpf Urine WBC 124 /hpf Urine Squamous Epithelial Cells 1 /hpf Urine Bacteria OCC /hpf Urine Mucus FEW /lpf Microscopic Urinalysis Comment CATH-CULTURE IND Blood Urea Nitrogen 15 MG/DL 10 MG/DL Creatinine 1.19 MG/DL 0.57 MG/DL Random Glucose 180 MG/DL 101 MG/DL Total Protein 7.8 GM/DL 5.8 GM/DL Albumin 3.6 GM/DL Calcium Level 9.0 MG/DL 7.0 MG/DL Alkaline Phosphatase 77 U/L Aspartate Amino Transf (AST/SGOT) 18 U/L Alanine Aminotransferase (ALT/SGPT) 19 U/L Total Bilirubin 0.8 MG/DL Sodium Level 135 MEQ/L 146 MEQ/L Potassium Level 3.3 MEQ/L 3.3 MEQ/L Chloride Level 100 MEQ/L 114 MEQ/L Carbon Dioxide Level 26.8 MEQ/L 24.7 MEQ/L Nasal Screen MRSA (PCR) MRSA NOT DETECTED Lactic Acid Level 1.8 mmol/L Differential Total Cells Counted 100 Neutrophils % (Manual) 56 % Band Neutrophils % 28 % Lymphocytes % 14 % Monocytes % 2 % Neutrophils # (Manual) 7.4 TH/MM3 Dohle Bodies PRESENT Platelet Estimate LOW Platelet Morphology Comment NORMAL Protein Corrected Calcium 7.7 MG/DL Phosphorus Level 2.3 MG/DL Random Vancomycin Level 23.2 COMMENT Test 07/27/17 11:41 07/27/17 18:11 White Blood Count 11.0 TH/MM3 Red Blood Count 3.50 MIL/MM3 Hemoglobin 10.2 GM/DL Hematocrit 30.3 % Mean Corpuscular Volume 86.7 FL Mean Corpuscular Hemoglobin 29.3 PG Mean Corpuscular Hemoglobin Concent 33.8 % Red Cell Distribution Width 13.5 % Platelet Count 177 TH/MM3 Mean Platelet Volume 9.2 FL Neutrophils (%) (Auto) 79.3 % Lymphocytes (%) (Auto) 14.4 % Monocytes (%) (Auto) 4.4 % Eosinophils (%) (Auto) 1.5 % Basophils (%) (Auto) 0.4 % Neutrophils # (Auto) 8.7 TH/MM3 Lymphocytes # (Auto) 1.6 TH/MM3 Monocytes # (Auto) 0.5 TH/MM3 Eosinophils # (Auto) 0.2 TH/MM3 Basophils # (Auto) 0.0 TH/MM3 CBC Comment DIFF FINAL Differential Comment Blood Urea Nitrogen 8 MG/DL Creatinine 0.71 MG/DL Random Glucose 174 MG/DL Calcium Level 7.5 MG/DL Phosphorus Level 1.7 MG/DL 1.8 MG/DL Magnesium Level 1.7 MG/DL Sodium Level 143 MEQ/L Potassium Level 3.2 MEQ/L 3.5 MEQ/L Chloride Level 109 MEQ/L Carbon Dioxide Level 25.6 MEQ/L Anion Gap 8 MEQ/L Estimat Glomerular Filtration Rate 85 ML/MIN Vancomycin Level Trough 6.8 MCG/ML Objective Remarks GENERAL: Well-nourished, well-developed patient. SKIN: Warm and dry. HEAD: Normocephalic. EYES: No scleral icterus. No injection or drainage. NECK: Supple, trachea midline. No JVD or lymphadenopathy. CARDIOVASCULAR: Regular rate and rhythm without murmurs, gallops, or rubs. RESPIRATORY: Breath sounds equal bilaterally. No accessory muscle use. GASTROINTESTINAL: Abdomen soft, non-tender, nondistended. MUSCULOSKELETAL: No cyanosis, or edema. BACK: Nontender without obvious deformity. NEURO EXAM: Awake and alert. Medications and IVs Current Medications Medications (Trade) Dose Ordered Sig/Wayne Route Start Time Stop Time Status Last Admin (Zoloft) 50 mg DAILY PO 07/25/17 09:00 07/28/17 08:31 (NovoLIN R SUPPLEMENTAL SCALE) 1 ACHS SLIDING SCALE SQ 07/25/17 08:00 07/27/17 12:07 Sodium Chloride 1,000 ml @ 75 mls/hr [id number] IV 07/25/17 02:28 07/28/17 08:32 (NS Flush) 2 ml UNSCH PRN IV FLUSH 07/25/17 02:30 07/27/17 09:18 (NS Flush) 2 ml BID IV FLUSH 07/25/17 09:00 07/28/17 08:32 (Tylenol) 650 mg Q6H PRN PO 07/25/17 02:30 07/25/17 22:10 (Zofran Inj) 4 mg Q6H PRN IV PUSH 07/25/17 02:30 (Ambien) 5 mg HS PRN PO 07/25/17 02:30 (Duoneb Neb) 1 ampule Q2HR NEB PRN INH 07/25/17 02:30 Miscellaneous Information 1 Q361D XX 07/25/17 02:30 (Chlorhexidine 2% Cloth) 3 pack Taper DAILY@04 TOP 07/25/17 04:00 07/21/18 03:59 07/26/17 04:00 (Chlorhexidine 2% Cloth) 3 pack UNSCH PRN TOP 07/25/17 02:30 (Kati-Colace) 1 tab BID PO 07/25/17 09:00 (Milk Of Magnesia Liq) 30 ml Q12H PRN PO 07/25/17 02:30 (Senokot) 17.2 mg Q12H PRN PO 07/25/17 02:30 (Dulcolax Supp) 10 mg DAILY PRN RECTAL 07/25/17 02:30 (Lactulose Liq) 30 ml DAILY PRN PO 07/25/17 02:30 Cefepime HCl 2000 mg/Sodium Chloride 100 ml @ 100 mls/hr Q12H IV 07/25/17 03:00 07/28/17 03:34 Pharmacy Profile Note 0 ml @ 0 mls/hr UNSCH OTHER 07/25/17 02:30 (D50w (Vial) Inj) 50 ml UNSCH PRN IV PUSH 07/25/17 09:30 (Glucagon Inj) 1 mg UNSCH PRN OTHER 07/25/17 09:30 (NS Inj) 10 ml UNSCH IRRIGATION 07/25/17 14:00 (Morphine Inj) 2 mg Q3H PRN SQ 07/25/17 23:00 07/25/17 23:10 (Motrin) 400 mg Q6H PRN PO 07/26/17 08:45 07/28/17 00:32 (Pyridium) 100 mg Q8H PRN PO 07/26/17 10:15 07/26/17 13:06 (Lactinex) 1 tab Q12HR PO 07/26/17 13:45 07/28/17 08:31 Vancomycin HCl 1250 mg/Sodium Chloride 262.5 ml @ 250 mls/hr Q12H IV 07/27/17 23:00 07/28/17 00:03 Miscellaneous Information SPECIFIC LAB TO BE LISA... ONCE ONCE .XX 07/29/17 10:45 07/29/17 10:46 (Pepcid Inj) 20 mg Q12H IV PUSH 07/28/17 00:00 07/28/17 00:02 A/P Assessment and Plan 1. Severe Sepsis secondary to Perinephric abscess, Hypotension resolved after 3 bolus of IV fluids, Lactic Acidosis improved Cefepime, Vancomycin. following cultures. 2. History of ureteral stent placed after a perforation of ureter on the left side status post removal. 3. Left Pyelonephritis with perinephric abscess, status post drainage now recommended by IR to remove, status post Cystoscopy and Stent placement. Urine culture growing GNR. 4. Suspected Psoas Muscle abscess by Infectious Disease, 5. Anemia, thrombocytopenia stable following 6. Depression stable to continue home medicines. 7. DM II continue SSI 8. Obesity strongly recommended diet and exercise as outpatient. 9. Electrolyte derangement Potassium 2.9 giving 80 meq of Potassium chloride, magnesium 1.4 giving 2 grams of Magnesium Sulfate Phosphorus 2.4 giving 15 mmol of Potassium Phosphate. following. GI prophylaxis - on Pepcid DVT prophylaxis - on SCD Discharge Planning Once cleared by ID specialist. Lucien Baum MD Jul 28, 2017 09:25
[2017-07-28 11:00] LABS: AUTOMATED NEUTROPHIL # 3.7 TH/MM3 (1.8-7.7); BASOPHIL # 0.1 TH/MM3 (0-0.2); BASOPHIL % 0.8 % (0.0-2.0); EOSINOPHIL # 0.4 TH/MM3 (0-0.4); EOSINOPHIL % 6.7 % (0.0-4.0); HEMATOCRIT 31.6 % (35.0-46.0); HEMO FLAGS DIFF FINAL; LYMPH % 26.5 % (9.0-44.0); LYMPHOCYTE # 1.7 TH/MM3 (1.0-4.8); MEAN CELL VOLUME 85.9 FL (80.0-100.0); MEAN CORPUSCULAR HEMOGLOBIN 28.8 PG (27.0-34.0); MEAN CORPUSCULAR HGB CONC 33.5 % (32.0-36.0); MONO % 10.2 % (0.0-8.0); NEUT % 55.8 % (16.0-70.0); PLATELET COUNT 170 TH/MM3 (150-450); RED BLOOD COUNT 3.67 MIL/MM3 (4.00-5.30); RED CELL DISTRIBUTION WIDTH 13.1 % (11.6-17.2); WHITE BLOOD COUNT 6.6 TH/MM3 (4.0-11.0)
[2017-07-28 11:29] LABS: BICARBONATE 26.5 MEQ/L (21.0-32.0); MAGNESIUM 1.4 MG/DL (1.5-2.5)
--- NOTE | 2017-07-28 11:32 | HHI.PR ---
Subjective Patient symptoms today Pt seen and examined. Pt feels well. Objective Vital Signs Vital Signs Date Time Temp Pulse Resp B/P (MAP) Pulse Ox O2 Delivery O2 Flow Rate FiO2 07/28/17 08:00 98.7 71 20 142/65 (90) 95 07/28/17 04:17 86 07/28/17 04:00 98.2 72 18 162/82 (108) 95 07/28/17 00:00 99.3 84 18 163/85 (111) 93 07/27/17 20:00 99.1 80 20 170/86 (114) 95 07/27/17 20:00 80 07/27/17 18:00 78 07/27/17 16:00 98.3 74 18 136/73 (94) 94 07/27/17 16:00 74 07/27/17 15:00 76 20 137/79 (98) 95 07/27/17 14:00 77 07/27/17 14:00 77 25 128/77 (94) 97 07/27/17 13:00 81 25 134/67 (89) 97 07/27/17 12:00 99.6 77 20 117/68 (84) 96 07/27/17 12:00 77 Intake & Output 07/28/17 07/28/17 07:00 19:00 Intake Total 500 ml 220 ml Output Total 3600 ml Balance -3100 ml 220 ml Intake Oral 120 ml IV Total 500 ml 100 ml Output Urine Total 3600 ml Result Diagram: 07/28/1719 07/27/171810 Objective Remarks Abd:soft,nt,nd Ponce and abdominal drain clear 07/28 Abd:soft,nt,nd Ponce clear; abdominal drain with minimal drainage Medications and IVs Current Medications Medications (Trade) Dose Ordered Sig/Wayne Route Start Time Stop Time Status Last Admin (Zoloft) 50 mg DAILY PO 07/25/17 09:00 07/28/17 08:31 (NovoLIN R SUPPLEMENTAL SCALE) 1 ACHS SLIDING SCALE SQ 07/25/17 08:00 07/27/17 12:07 Sodium Chloride 1,000 ml @ 75 mls/hr [id number] IV 07/25/17 02:28 07/28/17 08:32 (NS Flush) 2 ml UNSCH PRN IV FLUSH 07/25/17 02:30 07/27/17 09:18 (NS Flush) 2 ml BID IV FLUSH 07/25/17 09:00 07/28/17 08:32 (Tylenol) 650 mg Q6H PRN PO 07/25/17 02:30 07/25/17 22:10 (Zofran Inj) 4 mg Q6H PRN IV PUSH 07/25/17 02:30 (Ambien) 5 mg HS PRN PO 07/25/17 02:30 (Duoneb Neb) 1 ampule Q2HR NEB PRN INH 07/25/17 02:30 Miscellaneous Information 1 Q361D XX 07/25/17 02:30 (Chlorhexidine 2% Cloth) 3 pack Taper DAILY@04 TOP 07/25/17 04:00 07/21/18 03:59 07/26/17 04:00 (Chlorhexidine 2% Cloth) 3 pack UNSCH PRN TOP 07/25/17 02:30 (Kati-Colace) 1 tab BID PO 07/25/17 09:00 (Milk Of Magnesia Liq) 30 ml Q12H PRN PO 07/25/17 02:30 (Senokot) 17.2 mg Q12H PRN PO 07/25/17 02:30 (Dulcolax Supp) 10 mg DAILY PRN RECTAL 07/25/17 02:30 (Lactulose Liq) 30 ml DAILY PRN PO 07/25/17 02:30 Cefepime HCl 2000 mg/Sodium Chloride 100 ml @ 100 mls/hr Q12H IV 07/25/17 03:00 07/28/17 03:34 Pharmacy Profile Note 0 ml @ 0 mls/hr UNSCH OTHER 07/25/17 02:30 (D50w (Vial) Inj) 50 ml UNSCH PRN IV PUSH 07/25/17 09:30 (Glucagon Inj) 1 mg UNSCH PRN OTHER 07/25/17 09:30 (NS Inj) 10 ml UNSCH IRRIGATION 07/25/17 14:00 (Morphine Inj) 2 mg Q3H PRN SQ 07/25/17 23:00 07/25/17 23:10 (Motrin) 400 mg Q6H PRN PO 07/26/17 08:45 07/28/17 00:32 (Pyridium) 100 mg Q8H PRN PO 07/26/17 10:15 12/10/17 13:06 (Lactinex) 1 tab Q12HR PO 07/26/17 13:45 07/28/17 08:31 Vancomycin HCl 1250 mg/Sodium Chloride 262.5 ml @ 250 mls/hr Q12H IV 07/27/17 23:00 07/28/17 00:03 Miscellaneous Information SPECIFIC LAB TO BE LISA... ONCE ONCE .XX 07/29/17 10:45 07/29/17 10:46 (Pepcid Inj) 20 mg Q12H IV PUSH 07/28/17 00:00 07/28/17 00:02 Assessment and Plan Assessment and Plan Stable s/p cysto with left JJ stent insertion with placement of abdominal drain Change abdominal drain to EDWARD drain off suction and monitor output Consider repeat scan in 24 hours; if urinoma cleared consider removing abdominal drain prior to discharge Maintain ponce catheter and d/c home with catheter in place 07/28 Stable s/p cysto with left JJ stent insertion with placement of abdominal drain Recommend removal of abdominal drain per IR Maintain ponce D/C home on abx and f/u with urologist in [place] Arya Carter DO Jul 28, 2017 11:32
[2017-07-28 11:47] LABS: POTASSIUM 2.9 MEQ/L (3.5-5.1)
[2017-07-28] MEDS ORDERED: POTASSIUM CHLORIDE 20 MEQ CONTROLLED RELEASE TAB PO ONE ×2 (13:00→16:00)
[2017-07-28] MEDS: MAGNESIUM SULFATE 1 GM PREMIX 100 ML IV SCH ×2 (14:47→15:52)
[2017-07-28] MEDS ORDERED: POTASSIUM PHOSPHATE INJ 15 MMOL in SODIUM CHLORIDE 0.9% INJ 150 ML IV ONE (16:00)
[2017-07-28] MEDS: MORPHINE SULFATE 2 MG/ML INJ SQ PRN ×2 (22:01→22:27)
[2017-07-29] VITALS: BP 139/89; PULSE 73; RESP 16; TEMP 98.6; O2SAT 95
[2017-07-29] MEDS: CEFEPIME INJ 2,000 MG in SODIUM CHLORIDE 0.9% INJ 100 ML IV SCH (03:26)
[2017-07-29] MEDS: SODIUM CHLOR 0.9% 1000 ML INJ 1,000 ML IV SCH (03:27)
[2017-07-29 04:00] VITALS: BP 125/70; PULSE 64; RESP 16; TEMP 97.9; O2SAT 96
[2017-07-29] MEDS: CHLORHEXIDINE GLUCONATE 2 % 1 PACK (2 CLOTHS) TOP SCH (04:00)
[2017-07-29 07:53] VITALS: PULSE 77
[2017-07-29 08:00] VITALS: BP 189/87; PULSE 75; RESP 17; TEMP 97.6; O2SAT 97
[2017-07-29] MEDS: INSULIN NovoLIN REGULAR SUPPLEMENTAL SCALE SQ SCH ×2 (08:00→12:00)
[2017-07-29] MEDS: DOCUSATE SODIUM 50 MG/SENNA 8.6 MG TAB PO SCH (08:18)
[2017-07-29] MEDS: LACTOBACILLUS ACIDOPHILUS TAB PO SCH (08:18)
[2017-07-29] MEDS: SERTRALINE HCL 50 MG TAB PO SCH (08:18)
[2017-07-29] MEDS: SODIUM CHLORIDE 0.9% FLUSH 10 ML FLUSH IV FLUSH SCH (08:18)
[2017-07-29] MEDS ORDERED: VALSARTAN 160 MG TAB PO SCH (09:00)
[2017-07-29] MEDS ORDERED: VALSARTAN 80 MG TAB PO SCH (09:00)
[2017-07-29] MEDS ORDERED: PHARMACY ORDERED LAB ONE (10:45)
[2017-07-29 11:51] LABS: AUTOMATED NEUTROPHIL # 3.4 TH/MM3 (1.8-7.7); BASOPHIL # 0.1 TH/MM3 (0-0.2); BASOPHIL % 0.8 % (0.0-2.0); EOSINOPHIL # 0.5 TH/MM3 (0-0.4); EOSINOPHIL % 7.5 % (0.0-4.0); HEMATOCRIT 33.3 % (35.0-46.0); HEMO FLAGS DIFF FINAL; LYMPH % 23.9 % (9.0-44.0); LYMPHOCYTE # 1.6 TH/MM3 (1.0-4.8); MEAN CELL VOLUME 84.6 FL (80.0-100.0); MEAN CORPUSCULAR HEMOGLOBIN 28.3 PG (27.0-34.0); MEAN CORPUSCULAR HGB CONC 33.5 % (32.0-36.0); MONO % 15.1 % (0.0-8.0); NEUT % 52.7 % (16.0-70.0); PLATELET COUNT 210 TH/MM3 (150-450); RED BLOOD COUNT 3.93 MIL/MM3 (4.00-5.30); RED CELL DISTRIBUTION WIDTH 13.2 % (11.6-17.2); WHITE BLOOD COUNT 6.5 TH/MM3 (4.0-11.0)
[2017-07-29 12:00] VITALS: BP 143/88; PULSE 73; RESP 18; TEMP 98.7; O2SAT 95
--- NOTE | 2017-07-29 12:13 | HHI.PR ---
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 Patient reports that she had a ureteral stone that was complicated by a perforated left ureter. She had a ureteral stent placed at that time which was around 2 weeks ago, and was removed yesterday in [place]. She has had a fever throughout the day today with nausea and vomiting. Left flank pain is very mild, described as a tearing type pain. She took Tylenol about 2 hours prior to arrival for a temp at home of 102.7F. She denies dysuria, hematuria, or pyuria. The CAT scan of the abdomen is significant for perinephric stranding and periureteral stranding with a 6.1 cm rim-enhancing fluid highly suspicious of abscess. 07/26 s/p drainage of perinephric abscess and precordial drain placement by IR yesterday. For Cystoscopy with left retrograde pyelogram and left stent insertion Patient is awake and alert BP is better. 07/27 No events overnight. Patient is lying in bed in [facility]. s/p Cystoscopy and left stent insertion yesterday. Hospitalist Notes: 07/28: Stable seen in her bedroom, in the presence of her , she is followed by her Primary Urology specialist, she is in status post Cystoscopy with left JJ stent insertion with placement of abdominal drain, change abdominal drain to EDWARD drain off suction and monitor output, recommended removal of Abdominal drain per Interventional Radiology, but Maintain Steel cath and follow by Urology specialist in [place] may be discharge Home, 07/29: Seen in her bedroom, no complaint, already seen by her Primary Urology specialist doctor Raul Almanza and recommended Stable status pos cystoscopy with left JJ stent insertion with placement of abdominal drain, recommended removal of abdominal drain per IR but maintain the Steel cath, recommended to discharge Home on antibiotics, and follow up with Urology specialist in [place]. Objective Vital Signs Date Time Temp Pulse Resp B/P (MAP) Pulse Ox O2 Delivery O2 Flow Rate FiO2 07/29/17 08:00 97.6 75 17 189/87 (121) 97 07/29/17 07:53 77 07/29/17 04:00 97.9 64 16 125/70 (88) 96 07/29/17 00:00 98.6 73 16 139/89 (106) 95 07/28/17 20:00 99.2 74 16 174/84 (114) 95 07/28/17 16:00 99.4 89 19 140/68 (92) 95 I/O 07/28/17 07/28/17 07/28/17 07/29/17 07/29/17 07/29/17 07:00 15:00 23:00 07:00 15:00 23:00 Intake Total 500 ml 1060 ml 1543 ml Output Total 3600 ml 2000 ml 1000 ml Balance -3100 ml 1060 ml -457 ml -1000 ml Intake Oral 600 ml 750 ml IV Total 500 ml 460 ml 793 ml Output Urine Total 3600 ml 2000 ml 1000 ml # Bowel Movements 0 Result Diagram: 07/29/17 1122 07/28/17 0919 Imaging Last Impressions Abdomen/Pelvis CT 07/25/17 0046 Signed Impressions: Service Date/Time: Tuesday, July 25, 2017 01:15 - CONCLUSION: 1. Fat-containing ventral hernias. 2. Mild left hydronephrosis and hydroureter with a 3.7 mm calculus in the left proximal ureter. 3. Significant perinephric stranding and periureteral stranding with a 6.1 cm rim-enhancing fluid collection abutting the left psoas muscle. The possibility of a left ureteral injury with organizing fluid collection, possibly abscess versus urinoma collection can have this appearance. The 4. Mild hepatic steatosis. 5. Small hiatal hernia. Jakob Soto MD Procedures s/p CT guided drainage of perinephric abscess and drain placement 07/25- monitor drainage ( drained 650ml since yesterday) s/p Cystoscopy with left retrograde pyelogram and left stent insertion 07/26- Urology-Dr. Carter Other Results Laboratory Tests Test 07/24/17 23:55 07/25/17 03:48 07/25/17 07:55 07/26/17 02:10 Prothrombin Time 11.3 SEC Prothromb Time International Ratio 1.1 RATIO Activated Partial Thromboplast Time 24.9 SEC Urine Color ORANGE Urine Turbidity HAZY Urine pH 6.0 Urine Specific [place] 1.014 Urine Protein TRACE mg/dL Urine Glucose (UA) NEG mg/dL Urine Ketones NEG mg/dL Urine Occult Blood SMALL Urine Nitrite POS Urine Bilirubin NEG Urine Urobilinogen 2.0 MG/DL Urine Leukocyte Esterase LARGE Urine RBC 14 /hpf Urine WBC 124 /hpf Urine Squamous Epithelial Cells 1 /hpf Urine Bacteria OCC /hpf Urine Mucus FEW /lpf Microscopic Urinalysis Comment CATH-CULTURE IND Blood Urea Nitrogen 15 MG/DL 10 MG/DL Creatinine 1.19 MG/DL 0.57 MG/DL Random Glucose 180 MG/DL 101 MG/DL Total Protein 7.8 GM/DL 5.8 GM/DL Albumin 3.6 GM/DL Calcium Level 9.0 MG/DL 7.0 MG/DL Alkaline Phosphatase 77 U/L Aspartate Amino Transf (AST/SGOT) 18 U/L Alanine Aminotransferase (ALT/SGPT) 19 U/L Total Bilirubin 0.8 MG/DL Sodium Level 135 MEQ/L 146 MEQ/L Potassium Level 3.3 MEQ/L 3.3 MEQ/L Chloride Level 100 MEQ/L 114 MEQ/L Carbon Dioxide Level 26.8 MEQ/L 24.7 MEQ/L Nasal Screen MRSA (PCR) MRSA NOT DETECTED Lactic Acid Level 1.8 mmol/L Differential Total Cells Counted 100 Neutrophils % (Manual) 56 % Band Neutrophils % 28 % Lymphocytes % 14 % Monocytes % 2 % Neutrophils # (Manual) 7.4 TH/MM3 Dohle Bodies PRESENT Platelet Estimate LOW Platelet Morphology Comment NORMAL Protein Corrected Calcium 7.7 MG/DL Phosphorus Level 2.3 MG/DL Random Vancomycin Level 23.2 COMMENT Test 07/28/17 09:19 07/29/17 11:22 Estimat Glomerular Filtration Rate 137 ML/MIN Blood Urea Nitrogen 6 MG/DL Creatinine 0.47 MG/DL Random Glucose 88 MG/DL Calcium Level 8.0 MG/DL Phosphorus Level 2.4 MG/DL Magnesium Level 1.4 MG/DL Sodium Level 142 MEQ/L Potassium Level 2.9 MEQ/L Chloride Level 106 MEQ/L Carbon Dioxide Level 26.5 MEQ/L White Blood Count 6.5 TH/MM3 Red Blood Count 3.93 MIL/MM3 Hemoglobin 11.2 GM/DL Hematocrit 33.3 % Mean Corpuscular Volume 84.6 FL Mean Corpuscular Hemoglobin 28.3 PG Mean Corpuscular Hemoglobin Concent 33.5 % Red Cell Distribution Width 13.2 % Platelet Count 210 TH/MM3 Mean Platelet Volume 8.3 FL Neutrophils (%) (Auto) 52.7 % Lymphocytes (%) (Auto) 23.9 % Monocytes (%) (Auto) 15.1 % Eosinophils (%) (Auto) 7.5 % Basophils (%) (Auto) 0.8 % Neutrophils # (Auto) 3.4 TH/MM3 Lymphocytes # (Auto) 1.6 TH/MM3 Monocytes # (Auto) 1.0 TH/MM3 Eosinophils # (Auto) 0.5 TH/MM3 Basophils # (Auto) 0.1 TH/MM3 CBC Comment DIFF FINAL Differential Comment Objective Remarks GENERAL: Obese patient in no acute distress. SKIN: Warm and dry. HEAD: Normocephalic. EYES: No scleral icterus. No injection or drainage. NECK: Supple, trachea midline. No JVD or lymphadenopathy. CARDIOVASCULAR: Regular rate and rhythm without murmurs, gallops, or rubs. RESPIRATORY: Breath sounds equal bilaterally. No accessory muscle use. GASTROINTESTINAL: Abdomen soft, non-tender, nondistended. abdominal drain in place. MUSCULOSKELETAL: No cyanosis, or edema. BACK: Nontender without obvious deformity. NEURO EXAM: Awake and alert. Medications and IVs Current Medications Medications (Trade) Dose Ordered Sig/Wayne Route Start Time Stop Time Status Last Admin (Zoloft) 50 mg DAILY PO 07/25/17 09:00 07/29/17 08:18 (NovoLIN R SUPPLEMENTAL SCALE) 1 ACHS SLIDING SCALE SQ 07/25/17 08:00 07/27/17 12:07 Sodium Chloride 1,000 ml @ 75 mls/hr [id number] IV 07/25/17 02:28 07/29/17 03:27 (NS Flush) 2 ml UNSCH PRN IV FLUSH 07/25/17 02:30 07/27/17 09:18 (NS Flush) 2 ml BID IV FLUSH 07/25/17 09:00 07/29/17 08:18 (Tylenol) 650 mg Q6H PRN PO 07/25/17 02:30 07/25/17 22:10 (Zofran Inj) 4 mg Q6H PRN IV PUSH 07/25/17 02:30 (Ambien) 5 mg HS PRN PO 07/25/17 02:30 (Duoneb Neb) 1 ampule Q2HR NEB PRN INH 07/25/17 02:30 Miscellaneous Information 1 Q361D XX 07/25/17 02:30 (Chlorhexidine 2% Cloth) 3 pack Taper DAILY@04 TOP 07/25/17 04:00 07/21/18 03:59 07/26/17 04:00 (Chlorhexidine 2% Cloth) 3 pack UNSCH PRN TOP 07/25/17 02:30 (Kati-Colace) 1 tab BID PO 07/25/17 09:00 (Milk Of Magnesia Liq) 30 ml Q12H PRN PO 07/25/17 02:30 (Senokot) 17.2 mg Q12H PRN PO 07/25/17 02:30 (Dulcolax Supp) 10 mg DAILY PRN RECTAL 07/25/17 02:30 (Lactulose Liq) 30 ml DAILY PRN PO 07/25/17 02:30 Cefepime HCl 2000 mg/Sodium Chloride 100 ml @ 100 mls/hr Q12H IV 07/25/17 03:00 07/29/17 03:26 Pharmacy Profile Note 0 ml @ 0 mls/hr UNSCH OTHER 07/25/17 02:30 (D50w (Vial) Inj) 50 ml UNSCH PRN IV PUSH 07/25/17 09:30 (Glucagon Inj) 1 mg UNSCH PRN OTHER 07/25/17 09:30 (NS Inj) 10 ml UNSCH IRRIGATION 07/25/17 14:00 (Morphine Inj) 2 mg Q3H PRN SQ 07/25/17 23:00 07/28/17 22:27 (Motrin) 400 mg Q6H PRN PO 07/26/17 08:45 07/28/17 21:00 (Pyridium) 100 mg Q8H PRN PO 07/26/17 10:15 07/26/17 13:06 (Lactinex) 1 tab Q12HR PO 07/26/17 13:45 07/29/17 08:18 Vancomycin HCl 1250 mg/Sodium Chloride 262.5 ml @ 250 mls/hr Q12H IV 07/27/17 23:00 07/28/17 23:48 (Pepcid Inj) 20 mg Q12H IV PUSH 07/28/17 00:00 07/28/17 23:48 (Diovan) 80 mg BID PO 07/29/17 09:00 07/29/17 09:54 A/P Assessment and Plan 1. Severe Sepsis secondary to Perinephric abscess, Hypotension resolved after 3 bolus of IV fluids, Lactic Acidosis improved Cefepime, blood culture negative in 48 hours removed Vancomycin, has Urine culture positive for E Coli, will continue Cefepime as per her Primary Urology specialist doctor Raul Almanza and recommended Stable status pos cystoscopy with left JJ stent insertion with placement of abdominal drain, recommended removal of abdominal drain per IR but maintain the Steel cath, recommended to discharge Home on antibiotics, and follow up with Urology specialist in [place]. Awaiting removal of abdominal drainage by IR specialist. awaiting final by Infectious disease specialist for discharge. 2. History of ureteral stent placed after a perforation of ureter on the left side status post removal. 3. Left Pyelonephritis with perinephric abscess, status post drainage now recommended by IR to remove, status post Cystoscopy and Stent placement. Urine culture growing E Coli. 4. Suspected Psoas Muscle abscess by Infectious Disease, 5. Anemia, thrombocytopenia stable following 6. Depression stable to continue home medicines. 7. DM II continue SSI 8. Obesity strongly recommended diet and exercise as outpatient. 9. Electrolyte derangement replaced and following. GI prophylaxis - on Pepcid DVT prophylaxis - on SCD Discharge Planning Once cleared by ID specialist. Lucien Baum MD Jul 29, 2017 12:13
[2017-07-29] MEDS: FAMOTIDINE 20 MG/2 ML VIAL IV PUSH SCH (12:15)
[2017-07-29 12:16] LABS: BICARBONATE 28.2 MEQ/L (21.0-32.0); POTASSIUM 3.5 MEQ/L (3.5-5.1)
--- NOTE | 2017-07-29 12:34 | HHI.IDPN ---
Subjective Subjective Remarks ID COVERAGE is a 57 y/o CF with PMHx of recurrent UTI, pyelonephritis, ureteral stones, s.p cystoscopy and ureteral stent placement 3 weeks back in [place]. Patient reports the ureter was perforated and a stent placed. She reports being on Macrobid till 5 days [employer] ENGINE[employer]. She had her stent removed 5-6 days prior to admission. She reports she went back to work and was dragging herself. She has never had to do this but while walking from her work to her car she had to pause and wait due to weakness. She felt ok so the family decided to come to [place], [place] for a vacation. Enroute on her road trip her she felt chills, nausea and vomiting. Left flank pain radiating to knee area was felt and described as tearing type. She reports a temp of 102 F prior to admission. She denies dysuria, hematuria, or pyuria. The CAT scan of the abdomen is significant for perinephric stranding and periureteral stranding with a 6.1 cm rim-enhancing fluid highly suspicious of abscess. ID consulted for evaluation and Mment of severe sepsis, Left pyelonephritis and perinephric abscess. IR consulted for CT guided drainage. Notes reviewed D/W RN Temps ok Drain has been removed C/S with E coli Also S/P cysto and placement of stent BP good No pain No rash or itching No diarrhea WBC down to normal BC negative Antibiotics Current Medications Cefepime Medications (Trade) Dose Ordered Sig/Wayne Route Start Time Stop Time Status Last Admin (Zoloft) 50 mg DAILY PO 07/25/17 09:00 07/27/17 09:18 (NovoLIN R SUPPLEMENTAL SCALE) 1 ACHS SLIDING SCALE SQ 07/25/17 08:00 07/26/17 21:58 Sodium Chloride 1,000 ml @ 75 mls/hr [id number] IV 07/25/17 02:28 07/27/17 03:51 (NS Flush) 2 ml UNSCH PRN IV FLUSH 07/25/17 02:30 07/27/17 09:18 (NS Flush) 2 ml BID IV FLUSH 07/25/17 09:00 07/27/17 09:18 (Tylenol) 650 mg Q6H PRN PO 07/25/17 02:30 07/25/17 22:10 (Zofran Inj) 4 mg Q6H PRN IV PUSH 07/25/17 02:30 (Ambien) 5 mg HS PRN PO 07/25/17 02:30 (Duoneb Neb) 1 ampule Q2HR NEB PRN INH 07/25/17 02:30 Miscellaneous Information 1 Q361D XX 07/25/17 02:30 (Chlorhexidine 2% Cloth) 3 pack Taper DAILY@04 TOP 07/25/17 04:00 07/21/18 03:59 07/26/17 04:00 (Chlorhexidine 2% Cloth) 3 pack UNSCH PRN TOP 07/25/17 02:30 (Kati-Colace) 1 tab BID PO 07/25/17 09:00 (Milk Of Magnesia Liq) 30 ml Q12H PRN PO 07/25/17 02:30 (Senokot) 17.2 mg Q12H PRN PO 07/25/17 02:30 (Dulcolax Supp) 10 mg DAILY PRN RECTAL 07/25/17 02:30 (Lactulose Liq) 30 ml DAILY PRN PO 07/25/17 02:30 Cefepime HCl 2000 mg/Sodium Chloride 100 ml @ 100 mls/hr Q12H IV 07/25/17 03:00 07/27/17 03:51 Pharmacy Profile Note 0 ml @ 0 mls/hr UNSCH OTHER 07/25/17 02:30 (D50w (Vial) Inj) 50 ml UNSCH PRN IV PUSH 07/25/17 09:30 (Glucagon Inj) 1 mg UNSCH PRN OTHER 07/25/17 09:30 Potassium Chloride 100 ml @ 50 mls/hr Q2H PRN IV 07/25/17 09:30 Potassium Chloride 100 ml @ 50 mls/hr Q2H PRN IV 07/25/17 09:30 (K-Lyte Cl Eff) 50 meq UNSCH PRN PO 07/25/17 09:30 Potassium Chloride 100 ml @ 25 mls/hr UNSCH PRN IV 07/25/17 09:30 Potassium Chloride 100 ml @ 50 mls/hr Q2H PRN IV 07/25/17 09:30 Magnesium Sulfate 4 gm/Sodium Chloride 100 ml @ 50 mls/hr UNSCH PRN IV 07/25/17 09:30 07/25/17 15:42 (Mag-Ox) 800 mg UNSCH PRN PO 07/25/17 09:30 Magnesium Sulfate 2 gm/Sodium Chloride 100 ml @ 50 mls/hr UNSCH PRN IV 07/25/17 09:30 (K-Phos) 2,000 mg Q4H PRN PO 07/25/17 09:30 Sodium Phosphate 30 mmol/Sodium Chloride 250 ml @ 42 mls/hr UNSCH PRN IV 07/25/17 09:30 (K-Phos) 2,000 mg UNSCH PRN PO/TUBE 07/25/17 09:30 Potassium Phosphate 30 mmol/ Sodium Chloride 260 ml @ 42 mls/hr UNSCH PRN IV 07/25/17 09:30 07/27/17 06:40 (Pepcid Inj) 10 mg Q12H IV PUSH 07/25/17 12:00 07/26/17 23:35 (NS Inj) 10 ml UNSCH IRRIGATION 07/25/17 14:00 Vancomycin HCl 1250 mg/Sodium Chloride 262.5 ml @ 250 mls/hr Q18H IV 07/25/17 23:00 07/26/17 16:55 (Morphine Inj) 2 mg Q3H PRN SQ 07/25/17 23:00 07/25/17 23:10 (Motrin) 400 mg Q6H PRN PO 07/26/17 08:45 (Pyridium) 100 mg Q8H PRN PO 07/26/17 10:15 07/26/17 13:06 (Lactinex) 1 tab Q12HR PO 07/26/17 13:45 07/27/17 09:18 Lines Line sites with no e.o infection Past Medical History reviewed Allergies: Coded Allergies: amoxicillin (Verified Allergy, Severe, Anaphylaxis, 07/24/17) sulfamethoxazole (Verified Allergy, Severe, Hives, 07/24/17) trimethoprim (Verified Allergy, Severe, Hives, 07/24/17) Objective . Vital Signs Date Time Temp Pulse Resp B/P (MAP) Pulse Ox O2 Delivery O2 Flow Rate FiO2 07/29/17 08:00 97.6 75 17 189/87 (121) 97 07/29/17 07:53 77 07/29/17 04:00 97.9 64 16 125/70 (88) 96 07/29/17 00:00 98.6 73 16 139/89 (106) 95 07/28/17 20:00 99.2 74 16 174/84 (114) 95 07/28/17 16:00 99.4 89 19 140/68 (92) 95 . Laboratory Tests Test 07/28/17 09:19 07/29/17 11:22 White Blood Count 6.6 TH/MM3 6.5 TH/MM3 Red Blood Count 3.67 MIL/MM3 3.93 MIL/MM3 Hemoglobin 10.6 GM/DL 11.2 GM/DL Hematocrit 31.6 % 33.3 % Mean Corpuscular Volume 85.9 FL 84.6 FL Mean Corpuscular Hemoglobin 28.8 PG 28.3 PG Mean Corpuscular Hemoglobin Concent 33.5 % 33.5 % Red Cell Distribution Width 13.1 % 13.2 % Platelet Count 170 TH/MM3 210 TH/MM3 Mean Platelet Volume 9.1 FL 8.3 FL Neutrophils (%) (Auto) 55.8 % 52.7 % Lymphocytes (%) (Auto) 26.5 % 23.9 % Monocytes (%) (Auto) 10.2 % 15.1 % Eosinophils (%) (Auto) 6.7 % 7.5 % Basophils (%) (Auto) 0.8 % 0.8 % Neutrophils # (Auto) 3.7 TH/MM3 3.4 TH/MM3 Lymphocytes # (Auto) 1.7 TH/MM3 1.6 TH/MM3 Monocytes # (Auto) 0.7 TH/MM3 1.0 TH/MM3 Eosinophils # (Auto) 0.4 TH/MM3 0.5 TH/MM3 Basophils # (Auto) 0.1 TH/MM3 0.1 TH/MM3 CBC Comment DIFF FINAL DIFF FINAL Differential Comment Laboratory Tests Test 07/27/17 18:11 07/28/17 09:19 07/29/17 11:22 Potassium Level 3.5 MEQ/L 2.9 MEQ/L 3.5 MEQ/L Phosphorus Level 1.8 MG/DL 2.4 MG/DL Blood Urea Nitrogen 6 MG/DL 9 MG/DL Creatinine 0.47 MG/DL 0.55 MG/DL Random Glucose 88 MG/DL 141 MG/DL Calcium Level 8.0 MG/DL 8.8 MG/DL Magnesium Level 1.4 MG/DL Sodium Level 142 MEQ/L 141 MEQ/L Chloride Level 106 MEQ/L 107 MEQ/L Carbon Dioxide Level 26.5 MEQ/L 28.2 MEQ/L Anion Gap 10 MEQ/L 6 MEQ/L Estimat Glomerular Filtration Rate 137 ML/MIN 114 ML/MIN Imaging Last Impressions Abdomen/Pelvis CT 07/25/17 0046 Signed Impressions: Service Date/Time: Tuesday, July 25, 2017 01:15 - CONCLUSION: 1. Fat-containing ventral hernias. 2. Mild left hydronephrosis and hydroureter with a 3.7 mm calculus in the left proximal ureter. 3. Significant perinephric stranding and periureteral stranding with a 6.1 cm rim-enhancing fluid collection abutting the left psoas muscle. The possibility of a left ureteral injury with organizing fluid collection, possibly abscess versus urinoma collection can have this appearance. The 4. Mild hepatic steatosis. 5. Small hiatal hernia. Jakob Soto MD Physical Exam GENERAL:Awake and alert, NAD, not toxic appearing SKIN: No rashes, ecchymoses or lesions. Cool and dry. HEAD: Atraumatic. Normocephalic. No temporal or scalp tenderness. EYES: Pupils equal round and reactive. Extraocular motions intact. No scleral icterus. No injection or drainage. ENT: Nose without bleeding, purulent drainage or septal hematoma. Throat without erythema or exudate. NECK: Trachea midline. Supple, nontender, no meningeal signs. CARDIOVASCULAR: Regular rate and rhythm without murmurs, gallops, or rubs. RESPIRATORY: Clear to auscultation. Breath sounds equal bilaterally. No wheezes , rales, or rhonchi. GASTROINTESTINAL: Abdomen soft, non-tender, nondistended. MUSCULOSKELETAL: Extremities without clubbing, cyanosis, or edema. No joint tenderness, effusion, or edema noted. No calf tenderness. NEUROLOGICAL: Grossly noon-focal Psych cooperative IV line sites with no evidence of infection Assessment & Plan Remarks Severe Sepsis, resolved Hypotension, resolved S/P 3 bolus IVF. Lactic acid normalized. Left pyelonephritis with perinephric abscess, has drain in place - S/P cysto and stent placement - UC with E coli - drain has been removed E coli complicated UTI. Possible bacteremia. Possible psoas muscle abscess. Hx ureteral stent placement after a perforation of ureter on left side. 3 wks back at [facility]. Acute renal failure: sepsis, prerenal. - resolved Acute thrombocytopenia: sepsis, meds. Hematuria: likely ureteral perforation related. Recs Change Cefepime IV to po Ceftin, give 28 days Stop Vanco IV Agree with D/C plans today Explained plan to patient D/W Jamila Erwin MD Jul 29, 2017 12:34
[2017-07-29] MEDS ORDERED: CEFU1TAB20 PO (13:40)
[2017-07-29] MEDS ORDERED: POTASSIUM CHLORIDE 20 MEQ CONTROLLED RELEASE TAB PO ONE (13:45)
[2017-07-29] MEDS ORDERED: CEFUROXIME AXETIL 500 MG TAB PO SCH (14:00)
[2017-07-29] MEDS ORDERED: MACR100C2 PO (15:06)
== END 2017-07-29 15:37 | disposition home or self-care (01) | DRG 871 ==
LOC: NEPD 23:05 → NEDA 07-25 02:19 → HIME 07-25 03:45 → N07A 07-27 22:35
PROVIDERS: ADMIT Internal Medicine; ATTEND Internal Medicine
PROC: 0T9430Z Drainage of Left Kidney Pelvis with Drainage Device, Percutaneous Approach (ICD-10-PCS; 2017-07-25)
PROC: BT1F1ZZ Fluoroscopy of Left Kidney, Ureter and Bladder using Low Osmolar Contrast (ICD-10-PCS; 2017-07-26)
PROC: 0T778DZ Dilation of Left Ureter with Intraluminal Device, Via Natural or Artificial Opening Endoscopic (ICD-10-PCS; principal; 2017-07-26 08:07)
DX: A41.51 Sepsis due to Escherichia coli [E. coli] (principal); N15.1 Renal and perinephric abscess; N17.9 Acute kidney failure, unspecified; D69.6 Thrombocytopenia, unspecified; M60.08 Infective myositis, other site; I10 Essential (primary) hypertension; E11.9 Type 2 diabetes mellitus without complications; D64.9 Anemia, unspecified; N13.6 Pyonephrosis; R65.20 Severe sepsis without septic shock; K76.0 Fatty (change of) liver, not elsewhere classified; K43.9 Ventral hernia without obstruction or gangrene; K44.9 Diaphragmatic hernia without obstruction or gangrene; M54.9 Dorsalgia, unspecified; G89.29 Other chronic pain; N36.8 Other specified disorders of urethra; E66.9 Obesity, unspecified; F32.9 Major depressive disorder, single episode, unspecified; Z68.36 Body mass index [BMI] 36.0-36.9, adult; Z79.84 Long term (current) use of oral hypoglycemic drugs; Z88.0 Allergy status to penicillin; Z88.1 Allergy status to other antibiotic agents; Z88.2 Allergy status to sulfonamides
CPT/HCPCS: 74177; 74420; 75989; 80048; 80053; 80202; 81001; 82948; 83605; 83735; 84100; 84132; 84155; 85007; 85025; 85027; 85610; 85730; 87015; 87040; 87070; 87077; 87086; 87102; 87116; 87186; 87205; 87206; 87641; 93005; 94150; 96365; 96375; C1729; C1769; J0692; J0696; J1100; J2175; J2250; J2270; J2370; J2405; J2710; J3010; J3370; J3475; J7030; J7040; J7050; Q9967